=== PATIENT | female | born 1940 | race Caucasian/White ===

== ENCOUNTER 2017-02-02 06:50 | Inpatient (IN) | payer MEDICARE, BC ==
[2017-02-02] MEDS ORDERED: Ondansetron 4 MG/2 ML SDV ONE (07:36)
[2017-02-02] MEDS ORDERED: Rocuronium 50 MG/5 ML Vial ONE (07:36)
[2017-02-02] MEDS ORDERED: Propofol 200 MG/20 ML SDV ONE (07:36)
[2017-02-02] MEDS ORDERED: Dexamethasone 4 MG/ML SDV ONE (07:36)
[2017-02-02] MEDS ORDERED: fentaNYL 250 MCG/5 ML SDV ONE (07:36)
[2017-02-02] MEDS ORDERED: Neostigmine Methylsulfate 1 MG/ML 5 ML Syringe ONE (07:36)
[2017-02-02] MEDS: Lactated Ringers 1,000 ML IV SCH (07:58)
[2017-02-02] MEDS ORDERED: ceFAZolin 2 GM in Sodium Chloride 0.9% 50 ML IV ONE (09:00)
[2017-02-02] MEDS ORDERED: Povidone-Iodine 10% Soln 118.25 ML Bottle ONE ×2 (09:33→13:28)
[2017-02-02] MEDS ORDERED: Thrombin (Bovine) 5,000 Unit Kit ONE (09:33)
[2017-02-02] MEDS ORDERED: Albuterol/Ipratropium 3.0-0.5 MG/3 ML Neb Soln NEB ONE (10:00)
[2017-02-02] MEDS ORDERED: Lactated Ringers 1,000 ML ONE (11:23)
[2017-02-02] MEDS ORDERED: fentaNYL 100 MCG/2 ML SDV ONE ×2 (11:51→13:07)
[2017-02-02] MEDS ORDERED: ePHEDrine 50 MG/ML SDV ONE (12:05)
[2017-02-02] MEDS ORDERED: Zolpidem 5 MG Tab PO PRN (14:41)
[2017-02-02] MEDS ORDERED: Sennosides 8.6 MG Tab PO PRN (14:41)
[2017-02-02] MEDS ORDERED: Sodium Chloride 0.9% 10 ML Syringe FLUSH PRN (14:41)
[2017-02-02] MEDS ORDERED: Naloxone 0.4 MG/ML SDV IVPUSH PRN (14:41)
[2017-02-02] MEDS ORDERED: Aluminum Hydroxide/Magnesium Hydroxide/Simethicone Susp 30 ML Cup PO PRN (14:41)
[2017-02-02] MEDS ORDERED: Magnesium Hydroxide 400 MG/5 ML Susp 30 ML Cup PO PRN (14:41)
[2017-02-02] MEDS ORDERED: ceFAZolin 1 GM in Sodium Chloride 0.9% 50 ML IV SCH (14:45)
[2017-02-02] MEDS: HYDROmorphone 1 MG/ML Syringe IVPUSH PRN ×2 (15:25→18:22)
[2017-02-02] MEDS ORDERED: Albuterol 8 GM Inhaler INH PRN (15:52)
[2017-02-02] MEDS ORDERED: Ketotifen 0.025% Ophth Soln 5 ML Bottle EYEBOTH PRN (15:52)
[2017-02-02] MEDS: Ondansetron 4 MG/2 ML SDV IVPUSH PRN ×2 (17:13→21:05)
--- NOTE | 2017-02-02 17:18 | PCM.CONS ---
H&P History of Present Illness - General Date of Service: 02/02/17 Admit Problem/Dx: Source of Information: Patient, Provider, RN notes reviewed History Limitations: Reports: No limitations - History of Present Illness Initial Comments - Free Text/Narative: This patient is a 76-year-old woman who I been asked to see by Dr. Gonzalez for hospice consult and assistance in medical management during her hospital stay. She was admitted today for management of L4-5 spinal stenosis and underwent spinal fusion procedure. She is been stable during the initial postoperative period, pain control has been adequate and she has experienced some mild nausea. She denies any chest pain or pressure or significant shortness of breath. - Related Data Allergies/Adverse Reactions: Allergies Allergy/AdvReac Type Severity Reaction Status Date / Time morphine Allergy Itching Verified 02/02/17 07:15 paroxetine AdvReac Dizziness Verified 02/02/17 07:15 Home Medications: Home Meds Acetaminophen [Tylenol] 650 mg PO Q6H PRN 05/27/16 [History] Albuterol Sulfate [Proair Hfa] 2 puff IH Q4H PRN 05/27/16 [History] Betamethasone Valerate 1 applic TP BID 05/27/16 [History] Calcium Carbonate/Vitamin D3 [Calcium 600 + Vit D 200] 1 each PO BID 05/27/16 [ History] Cetirizine [ZyrTEC] 10 mg PO DAILY 05/27/16 [History] Citalopram Hydrobromide [Celexa] 10 mg PO DAILY 05/27/16 [History] Clopidogrel [Plavix] 75 mg PO DAILY 05/27/16 [History] HCTZ/Triamterene [Maxzide 25-37.5 MG] 1 each PO DAILY 05/27/16 [History] Ketotifen [Ketotifen 0.025% Ophth Soln] 1 drop EYEBOTH DAILY PRN 05/27/16 [ History] Metoprolol Tartrate [Lopressor] 25 mg PO Q12HR 05/27/16 [History] Multivitamin [Multi-Vitamin Daily] 1 tab PO DAILY 05/27/16 [History] Nystatin [Nystatin Crm] 1 applic TOP BID 05/27/16 [History] [place]-3/DHA/Epa/Fish Oil [[place]-3 Fish Oil 1,000 MG Sfgl] 1,000 mg PO BID [History] Triamcinolone Acetonide [Kenalog 0.1% Crm] 1 applic TOP BID PRN 05/27/16 [ History] Pravastatin [Pravachol] 10 mg PO DAILY 05/31/16 [History] Past Medical History HEENT History: Reports: Allergic rhinitis, Cataract, Hard of hearing Cardiovascular History: Reports: High cholesterol, Hypertension, Other (see below) Other Cardiovascular History: in grade school had blood clot in thigh Respiratory History: Reports: Bronchitis, recurrent, COPD, Other (see below) Other Respiratory History: emphysema Gastrointestinal History: Reports: Diverticulosis, Gastritis, Hemorrhoids Genitourinary History: Reports: UTI, recurrent [employer] History: Reports: Fibroids, Musculoskeletal History: Reports: Arthritis, Back pain, chronic, Other (see below) Other Musculoskeletal History: bulging disc, wears back brace, right shoulder spurs Neurological History: Reports: CVA Psychiatric History: Reports: Depression Endocrine/Metabolic History: Reports: None Hematologic History: Reports: None Immunologic History: Reports: None Oncologic (Cancer) History: Reports: None Dermatologic History: Reports: Other (see below) Other Dermatologic History: rash - Infectious Disease History Infectious Disease History: Reports: Chicken pox - Past Surgical History Head Surgeries/Procedures: Reports: None HEENT Surgical History: Reports: Tonsillectomy Cardiovascular Surgical History: Reports: None Respiratory Surgical History: Reports: None GI Surgical History: Reports: Colonoscopy, Hernia repair/other Female Surgical History: Reports: Hysterectomy, Salpingo-oophorectomy Neurological Surgical History: Reports: None Musculoskeletal Surgical History: Reports: Shoulder surgery Oncologic Surgical History: Reports: None Dermatological Surgical History: Reports: None Social & Family History - Family History Family Medical History: Noncontributory - Tobacco Use Smoking Status *Q: Never Smoker Second Hand Smoke Exposure: No - Caffeine Use Caffeine Use: Reports: Coffee - Alcohol Use Date of Last Drink: 01/22/17 Time of Last Drink: 18:00 - Recreational Drug Use Recreational Drug Use: No H&P Review of Systems - Review of Systems: Review Of Systems: See Below General: Reports: no symptoms Pulmonary: Reports: No Symptoms Cardiovascular: Reports: no symptoms Gastrointestinal: Reports: No symptoms Genitourinary: Reports: no symptoms Exam - Exam Exam: See Below - Vital Signs Vital Signs: Last Vital Signs Temp 96.6 F 02/02/17 15:00 Pulse 89 02/02/17 16:30 Resp 16 02/02/17 16:30 BP 103/70 02/02/17 16:30 Pulse Ox 93 L 02/02/17 16:30 Weight: 174 lb 0.2 oz - Exam General: sedated, lethargic Neck: supple, trachea midline, +2 carotid pulse wo bruit Lungs: Clear to auscultation, Normal respiratory effort Cardiovascular: regular rate, regular rhythm, normal S1, normal S2. No: systolic murmur, diastolic murmur Abdomen: normal bowel sounds, soft Consult PN Assessment/Plan Procedures: Procedures ARTHROSCOP ROTATOR CUFF REPR (05/31/16) BLOOD TYPING SEROLOGIC ABO (01/24/17) BLOOD TYPING SEROLOGIC RH(D) (01/24/17) CHEST X-RAY 2VW FRONTAL&LATL (01/24/17) COMP SCREEN MAMMOGRAM ADD-ON (08/04/16) COMPLETE CBC AUTOMATED (01/24/17) COMPREHEN METABOLIC PANEL (01/24/17) CULTURE OTHR SPECIMN AEROBIC (01/24/17) EVALUATION OF WHEEZING (09/26/13) HOT OR COLD PACKS THERAPY (08/25/16) MANUAL THERAPY 1/> REGIONS (07/15/16) MRI CHEST SPINE W/O DYE (01/13/17) MRI JOINT UPR EXTREM W/O DYE (04/23/16) MRI LUMBAR SPINE W/O DYE (01/13/17) OFFICE/OUTPATIENT VISIT NEW (01/24/17) POLYSOM ANY AGE 1-3> FRIEDA (12/05/16) PROTHROMBIN TIME (01/24/17) PT EVALUATION (06/15/16) PT RE-EVALUATION (11/13/15) RBC ANTIBODY SCREEN (01/24/17) ROUTINE VENIPUNCTURE (01/24/17) SHOULDER ARTHROSCOPY/SURGERY (05/31/16) THERAPEUTIC EXERCISES (08/25/16) ULTRASOUND THERAPY (04/15/16) X-RAY EXAM L-2 SPINE 4/>VWS (01/24/17) Problem List Initiated/Reviewed/Updated: Yes My Orders last 24 hours: My Active Orders 02/02/17 15:52 Albuterol [Ventolin HFA] 0 gm INH Q4H PRN Ketotifen [Ketotifen 0.025% Ophth Soln] 0 ml EYEBOTH DAILY PRN Triamcinolone Acetonide [Triamcinolone Acetonide 0.1% Crm] 0 gm TOP BID PRN 02/02/17 16:00 Citalopram [Celexa] 10 mg PO DAILY 02/02/17 18:00 Metoprolol Tartrate [Lopressor] 25 mg PO Q12H 02/02/17 21:00 Non-Formulary Medication [NF Drug] 0 each TOP BID Pravastatin [Pravachol] 10 mg PO BEDTIME 02/03/17 09:00 Cetirizine [ZyrTEC] 10 mg PO DAILY HCTZ/Triamterene [Dyazide 25-37.5 MG] 1 each PO DAILY Plan: ASSESSMENT AND RECOMMENDATIONS STATUS POST LUMBAR SPINAL FUSION-for management of L4-5 spinal stenosis -Postoperative care per Dr. Pb Gonzalez HYPERTENSION -Monitor blood pressure closely during hospital stay -Resume usual outpatient antihypertensive therapy HYPERCHOLESTEROLEMIA -Continue current therapy with pravastatin Requesting Provider: ALEISHA Date Consult Requested: 02/02/17 Reason for Consult: Postoperative medical management Patient History Reviewed: Yes
[2017-02-02] MEDS: Citalopram 10 MG Tab PO SCH (17:20)
[2017-02-02] MEDS: ceFAZolin 1 GM in Premix Bag 1 BAG IV SCH (18:22)
[2017-02-02] MEDS: Metoprolol Tartrate 25 MG Tab PO SCH (23:32)
[2017-02-02] MEDS: Pravastatin 20 MG Tab PO SCH (23:33)
[2017-02-02] MEDS: BETAMETHASONE VALERATE TOP SCH (23:33)
[2017-02-03] MEDS: Lactated Ringers 1,000 ML IV SCH (00:39)
[2017-02-03] MEDS: ceFAZolin 1 GM in Premix Bag 1 BAG IV SCH (02:53)
[2017-02-03] MEDS: Metoprolol Tartrate 25 MG Tab PO SCH ×2 (05:12→17:30)
[2017-02-03] MEDS: Acetaminophen/oxyCODONE 325-5 MG Tab PO PRN ×6 (05:14→20:47)
[2017-02-03] MEDS: Ondansetron 4 MG/2 ML SDV IVPUSH PRN (08:06)
--- NOTE | 2017-02-03 09:01 | OR ---
DATE OF PROCEDURE: 02/02/2017 PREOPERATIVE DIAGNOSES: 1. Lumbar stenosis, L4-L5. 2. Spondylolisthesis, L4-L5. 3. Radiculopathy, L4-L5. POSTOPERATIVE DIAGNOSES: 1. Lumbar stenosis, L4-L5. 2. Spondylolisthesis, L4-L5. 3. Radiculopathy, L4-L5. PROCEDURE: Posterior lumbar fusion, L4-L5. ELECTRIC HOIST OPERATOR: Arianna Lundberg NP. ANESTHESIA: General endotracheal intubation. FLUID: Lactated Ringer solution. ESTIMATED BLOOD LOSS: 800 mL. COMPLICATIONS: None. SPECIMEN: None. DISCHARGE DISPOSITION: Stable to PACU. HISTORY AND INDICATIONS FOR THE PROCEDURE: The patient was seen preoperatively in the clinic. She had failed nonoperative treatment, including nonsteroidal anti-inflammatories, medications, physical therapy, and epidural steroid injections. Preoperative imaging confirmed the above-mentioned diagnosis. Risks and benefits of the procedure were explained to the patient. Informed consent was obtained. PROCEDURE IN DETAIL: The patient was seen preoperatively by myself and the Anesthesia staff in the preop holding area, where the operative site was marked. She was brought to the operative suite by the anesthesia staff, where general anesthesia was administered. Neuromonitoring leads were placed preoperatively and remained normal throughout the entire case. The fluoroscopy unit was draped in sterile manner. Please note, a sterile Person catheter had been placed. She was placed into a Waylon table in a prone position. All extremities were found to be well padded. A time-out was called identifying the correct patient, the correct procedure, the correct site, and antibiotics had begun with an appropriate period of time. Fluoroscopy was used to visualize the L4 and L5 vertebral bodies. Midline incision was made from the spinous processes of L3 through L5 and carried down to the deep fascia. There was a great deal of oozing throughout this case. The patient was preoperatively on Plavix. She had been stopped for least 5 days. Cerebellar retractors were used at that point in time. I then used a Cho elevator and Bovie electrocautery for deep dissection down over the spinous process, as well as the lamina facets and transverse processes of the L4 and L5 vertebrae. Bleeding was initially controlled by the Aquamantys unit and bipolar electrocautery. At times I did use Ray-Edilia's in the lateral gutters to control bleeding. The screws were first placed on the left and then the right at L4 and L5. The method for this was to palpate the transverse processes, to drill out the facets, and then enter the base of the facet at the level of the pars, and then using a Pediguard, insert the Pediguard down to 50 mm, and then placed a pedicle probe to ensure that all 4 sides had bone and that there was no medial or lateral breach. I then would tap and then placed the pedicle probe again, confirming there was no breach, followed by the screws. These were all globus Creo 50 mm screws, which were 5.5 mm. I confirmed good placement on the left side with fluoroscopy, then the right side. After this had been completed, we spent a very large amount of time doing the additional laminectomy at L4-5, which was needed for decompression for lumbar stenosis. I used a rongeur to remove any soft tissue and then removed bone for graft, removing the inferior portion of the L3 spinous process, the entire L4 spinous process, and part of the cranial portion of the L5 spinous process. I then used a technique by making a trough in the lateral lamina. I was unable to crack this; however, I was able to take a rongeur and then break it off in a few sections and taking off the lamina without interrupting the dura. I then used cottonoids to protect the dura. I removed the ligamentum flavum and then concentrated on a facetectomy on the left. This was done using the drill, as well as Kerrisons and rongeurs. After the inferior facet of L4 and superior facet of L5 on the left were removed, it was abundantly clear that the entire nerve root at L4 was covering the disk space and this could not be retracted cranially to allow diskectomy and interbody placement. At that time, I decided we would not do an interbody device and that we would continue without it. We then irrigated with 3 L of Betadine infused irrigation. I then put the caps on the screws, as well as the rods, and then the laminectomy autograft was used and mixed with Sign[employer] Bioactive crunch and then placed into the right lateral gutter, after decorticating the transverse processes, as well as the facets on that side. This provided an excellent bed for the bone graft. We then placed our rods and tightened them to the appropriate torque. We then took final films and then closed the deep fascia with #2 Vicryl in an interlocking fashion, followed by #2 continuous Vicryl, followed by another liter of Betadine infused irrigation. Please note that we did place a deep drain prior to the fascial closure, which was subfascial. We then created another drain for the subcutaneous tissue and then closed the deep subcu with 0 Vicryl pops and then subcutaneous suture with 2-0 Vicryl pops, then 2-0 Monocryl, Dermabond, and a sterile dressing. The patient was then flipped into a supine position on the hospital bed and taken to the PACU in stable condition. Pb Gonzalez DO /[id number]
[2017-02-03] MEDS: BETAMETHASONE VALERATE TOP SCH ×2 (09:14→20:44)
[2017-02-03] MEDS: Citalopram 10 MG Tab PO SCH (09:18)
[2017-02-03] MEDS: Hydrochlorothiazide/Triamterene 25-37.5 MG Cap PO SCH (09:18)
[2017-02-03] MEDS: Cetirizine 10 MG Tab PO SCH (09:18)
[2017-02-03] MEDS ORDERED: Diazepam 5 MG Tab PO PRN (09:25)
[2017-02-03] MEDS ORDERED: Ondansetron 4 MG Tab.DIS PO PRN (09:26)
[2017-02-03] MEDS: Dexamethasone 4 MG Tab PO SCH ×2 (12:12→20:43)
--- NOTE | 2017-02-03 12:27 | PCM.CONSN ---
- General Info Date of Service: 02/03/17 Functional Status: Reports: pain controlled, tolerating diet, ambulating, urinating - Review of Systems General: Reports: No Symptoms Pulmonary: Reports: no symptoms Cardiovascular: Reports: No Symptoms Gastrointestinal: Reports: Nausea. Denies: Abdominal pain, Constipation, Vomiting Musculoskeletal: Reports: back pain Systems Review Comment:: This patient has remained stable since admission, she has experienced some ongoing difficulty with nausea. Vital signs have been stable and she has remained afebrile. - Patient Data Vitals - most recent: Last Vital Signs Temp 96.6 F 02/03/17 11:53 Pulse 67 02/03/17 11:53 Resp 16 02/03/17 11:53 BP 105/67 02/03/17 11:53 Pulse Ox 97 02/03/17 11:53 Weight - most recent: 174 lb 0.2 oz I&O - last 24 hours: Intake & Output 02/02/17 02/03/17 02/03/17 22:59 06:59 14:59 Intake Total 145 315 7852 Output Total 110 300 Balance 225 -150 1361 Lab Results last 24 hrs: Laboratory Results - last 24 hr 02/03/17 02/03/17 Range/Units 05:00 05:00 WBC 13.1 H (4.5-11.0) K/uL RBC 3.83 (3.30-5.50) M/uL Hgb 11.9 L D (12.0-15.0) g/dL Hct 35.1 L (36.0-48.0) % MCV 92 (80-98) fL MCH 31 (27-31) pg MCHC 34 (32-36) % Plt Count 216 (150-400) K/uL Neut % (Auto) 84 H (36-66) % Lymph % (Auto) 6 L (24-44) % [place] % (Auto) 10 H (2-6) % Eos % (Auto) 0 L (2-4) % Baso % (Auto) 0 (0-1) % Sodium 140 (140-148) mmol/L Potassium 4.2 (3.6-5.2) mmol/L Chloride 102 (100-108) mmol/L Carbon Dioxide 29 (21-32) mmol/L Anion Gap 9.1 (5.0-14.0) mmol/L BUN 18 (7-18) mg/dL Creatinine 1.2 H (0.6-1.0) mg/dL Est Cr Clr Drug Dosing 32.99 mL/min Estimated GFR (MDRD) 44 L (>60) Glucose 170 H (74-106) mg/dL Calcium 8.2 L (8.5-10.1) mg/dL Med Orders - Current: Current Medications Al Hydroxide/Mg Hydroxide (Mag-Al Plus) 30 ml PO Q4H PRN PRN Reason: Indigestion Albuterol (Ventolin Hfa) 0 gm INH Q4H PRN PRN Reason: Shortness of Breath Cetirizine HCl (Zyrtec) 10 mg PO DAILY [facility] Last Admin: 02/03/17 09:18 Dose: 10 mg Citalopram Hydrobromide (Celexa) 10 mg PO DAILY [facility] Last Admin: 02/03/17 09:18 Dose: 10 mg Dexamethasone (Dexamethasone) 4 mg PO BID [facility] Last Admin: 02/03/17 12:12 Dose: 4 mg Diazepam (Valium.) 5 mg PO QID PRN PRN Reason: Spasms Last Admin: 02/03/17 09:41 Dose: 5 mg Lactated Ringer's (Ringers, Lactated) 1,000 mls @ 100 mls/hr IV ASDIRECTED [facility] Last Admin: 02/03/17 00:39 Dose: 100 mls/hr Ketotifen Fumarate (Ketotifen 0.025% Ophth Soln) 0 ml EYEBOTH DAILY PRN PRN Reason: Allergies Magnesium Hydroxide (Milk Of Magnesia) 30 ml PO BID PRN PRN Reason: Constipation Metoprolol Tartrate (Lopressor) 25 mg PO Q12H [facility] Last Admin: 02/03/17 05:12 Dose: 25 mg Betamethasone (Valerate Lotion) 0 each TOP BID [facility] Last Admin: 02/03/17 09:14 Dose: Not Given Ondansetron HCl (Zofran Odt) 4 mg PO Q6H PRN PRN Reason: Nausea/Vomiting Oxycodone/Acetaminophen (Percocet 325-5 Mg) 2 tab PO Q4H PRN PRN Reason: Pain Last Admin: 02/03/17 09:18 Dose: 2 tab Pravastatin Sodium (Pravachol) 10 mg PO BEDTIME [facility] Last Admin: 02/02/17 23:33 Dose: Not Given Senna (Senna) 8.6 mg PO BID PRN PRN Reason: Constipation Triamcinolone Acetonide (Triamcinolone Acetonide 0.1% Crm) 0 gm TOP BID PRN PRN Reason: Itching Triamterene/HCTZ (Dyazide 25-37.5 Mg) 1 each PO DAILY [facility] Last Admin: 02/03/17 09:18 Dose: 1 each Zolpidem Tartrate (Ambien) 5 mg PO BEDTIME PRN PRN Reason: Sleep Discontinued Medications Albuterol/Ipratropium (Duoneb 3.0-0.5 Mg/3 Ml) 3 ml NEB ONETIME ONE Stop: 02/02/17 10:01 Last Admin: 02/02/17 09:47 Dose: 3 ml Dexamethasone (Dexamethasone) Confirm Administered Dose 4 mg .ROUTE .STK-MED ONE Stop: 02/02/17 07:37 Diazepam (Valium) 5 mg IVPUSH Q6H PRN PRN Reason: Spasms Ephedrine Sulfate (Ephedrine Sulfate) Confirm Administered Dose 50 mg .ROUTE .STK-MED ONE Stop: 02/02/17 12:06 Fentanyl (Sublimaze) Confirm Administered Dose 250 mcg .ROUTE .STK-MED ONE Stop: 02/02/17 07:37 Fentanyl (Sublimaze) Confirm Administered Dose 100 mcg .ROUTE .STK-MED ONE Stop: 02/02/17 11:52 Fentanyl (Sublimaze) Confirm Administered Dose 100 mcg .ROUTE .STK-MED ONE Stop: 02/02/17 13:08 Glycopyrrolate () Confirm Administered Dose 1 mg .ROUTE .STK-MED ONE Stop: 02/02/17 07:37 Hydromorphone HCl (Dilaudid) 1 mg IVPUSH Q2H PRN PRN Reason: Pain Last Admin: 02/02/17 18:22 Dose: 1 mg Cefazolin Sodium 2 gm/ Sodium (Chloride) 50 mls @ 100 mls/hr IV ONETIME ONE Stop: 02/02/17 09:29 Last Admin: 02/02/17 10:15 Dose: 100 mls/hr Lactated Ringer's (Ringers, Lactated) Confirm Administered Dose 1,000 mls @ as directed .ROUTE .STK-MED ONE Stop: 02/02/17 11:24 Cefazolin Sodium 1 gm/ Sodium (Chloride) 50 mls @ 100 mls/hr IV Q8H [facility] Stop: 02/03/17 07:14 Last Admin: 02/02/17 17:20 Dose: Not Given Cefazolin Sodium/Dextrose 1 gm (/ Premix) 50 mls @ 100 mls/hr IV Q8H [facility] Stop: 02/03/17 10:29 Last Admin: 02/03/17 02:53 Dose: 100 mls/hr Naloxone HCl (Narcan) 0.2 mg IVPUSH ONETIME PRN PRN Reason: Oversedation Stop: 02/02/17 14:42 Neostigmine Methylsulfate (Neostigmine) Confirm Administered Dose 5 mg .ROUTE .STK-MED ONE Stop: 02/02/17 07:37 Ondansetron HCl (Zofran) Confirm Administered Dose 4 mg .ROUTE .STK-MED ONE Stop: 02/02/17 07:37 Ondansetron HCl (Zofran) 8 mg IVPUSH Q4H PRN PRN Reason: Nausea/Vomiting Last Admin: 02/03/17 08:06 Dose: 8 mg Povidone Iodine (Betadine 10% Soln) Confirm Administered Dose 1 ml .ROUTE .STK- MED ONE Stop: 02/02/17 09:34 Last Admin: 02/02/17 11:13 Dose: 1 ml Povidone Iodine (Betadine 10% Soln) Confirm Administered Dose 1 ml .ROUTE .STK- MED ONE Stop: 02/02/17 13:29 Last Admin: 02/02/17 14:00 Dose: 1 ml Propofol (Diprivan 20 Ml) Confirm Administered Dose 200 mg .ROUTE .STK-MED ONE Stop: 02/02/17 07:37 Rocuronium [place] (Zemuron) Confirm Administered Dose 50 mg .ROUTE .STK-MED ONE Stop: 02/02/17 07:37 Sodium Chloride (Saline Flush) 10 ml FLUSH ASDIRECTED PRN PRN Reason: Keep Vein Open Thrombin (Thrombin-Jmi) Confirm Administered Dose 10,000 unit .ROUTE .STK-MED ONE Stop: 02/02/17 09:34 Last Admin: 02/02/17 11:14 Dose: 10,000 unit - Exam Quality Assessment: DVT prophylaxis General: alert, oriented, cooperative, mild distress Lungs: Clear to auscultation, Normal respiratory effort Cardiovascular: Regular Rate, Regular Rhythm, No Murmurs Abdomen: bowel sounds present, soft, no tenderness, no distension Extremities: no edema Skin: warm, dry, intact Consult PN Assessment/Plan Procedures: Procedures ARTHROSCOP ROTATOR CUFF REPR (05/31/16) BLOOD TYPING SEROLOGIC ABO (01/24/17) BLOOD TYPING SEROLOGIC RH(D) (01/24/17) CHEST X-RAY 2VW FRONTAL&LATL (01/24/17) COMP SCREEN MAMMOGRAM ADD-ON (08/04/16) COMPLETE CBC AUTOMATED (01/24/17) COMPREHEN METABOLIC PANEL (01/24/17) CULTURE OTHR SPECIMN AEROBIC (01/24/17) EVALUATION OF WHEEZING (09/26/13) HOT OR COLD PACKS THERAPY (08/25/16) MANUAL THERAPY 1/> REGIONS (07/15/16) MRI CHEST SPINE W/O DYE (01/13/17) MRI JOINT UPR EXTREM W/O DYE (04/23/16) MRI LUMBAR SPINE W/O DYE (01/13/17) OFFICE/OUTPATIENT VISIT NEW (01/24/17) POLYSOM ANY AGE 1-3> FRIEDA (12/05/16) PROTHROMBIN TIME (01/24/17) PT EVALUATION (06/15/16) PT RE-EVALUATION (11/13/15) RBC ANTIBODY SCREEN (01/24/17) ROUTINE VENIPUNCTURE (01/24/17) SHOULDER ARTHROSCOPY/SURGERY (05/31/16) THERAPEUTIC EXERCISES (08/25/16) ULTRASOUND THERAPY (04/15/16) X-RAY EXAM L-2 SPINE 4/>VWS (01/24/17) Problem List Initiated/Reviewed/Updated: Yes My Orders last 24 hours: My Active Orders 02/02/17 15:52 Albuterol [Ventolin HFA] 0 gm INH Q4H PRN Ketotifen [Ketotifen 0.025% Ophth Soln] 0 ml EYEBOTH DAILY PRN Triamcinolone Acetonide [Triamcinolone Acetonide 0.1% Crm] 0 gm TOP BID PRN 02/02/17 16:00 Citalopram [Celexa] 10 mg PO DAILY 02/02/17 18:00 Metoprolol Tartrate [Lopressor] 25 mg PO Q12H 02/02/17 21:00 Non-Formulary Medication [NF Drug] 0 each TOP BID Pravastatin [Pravachol] 10 mg PO BEDTIME 02/03/17 09:00 Cetirizine [ZyrTEC] 10 mg PO DAILY HCTZ/Triamterene [Dyazide 25-37.5 MG] 1 each PO DAILY Plan: ASSESSMENT AND RECOMMENDATIONS STATUS POST LUMBAR SPINAL FUSION-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 Except for nausea stable during the postoperative period -Postoperative care per Dr. Pb Gonzalez HYPERTENSION-blood pressures have remained stable thus far -Monitor blood pressure closely during hospital stay -Resume usual outpatient antihypertensive therapy HYPERCHOLESTEROLEMIA -Continue current therapy with pravastatin
[2017-02-03] MEDS: Pravastatin 20 MG Tab PO SCH (20:45)
[2017-02-04] MEDS: Metoprolol Tartrate 25 MG Tab PO SCH ×2 (05:38→18:14)
[2017-02-04] MEDS: Acetaminophen/oxyCODONE 325-5 MG Tab PO PRN ×3 (07:09→18:14)
--- NOTE | 2017-02-04 08:28 | PCM.PN ---
- General Info Date of Service: 02/03/17 Functional Status: Reports: pain controlled, tolerating diet, ambulating - Patient Data Vitals - most recent: Last Vital Signs Temp 35.6 C 02/04/17 04:00 Pulse 65 02/04/17 05:38 Resp 16 02/04/17 04:00 BP 143/85 H 02/04/17 05:38 Pulse Ox 94 L 02/04/17 07:22 Weight - most recent: 174 lb 0.2 oz I&O - last 24 hours: Intake & Output 02/03/17 02/04/17 02/04/17 22:59 06:59 14:59 Intake Total 380 480 Output Total 425 620 35 Balance -45 -140 -35 Lab Results last 24 hrs: Laboratory Results - last 24 hr 02/04/17 02/04/17 Range/Units 05:37 05:37 WBC 12.6 H (4.5-11.0) K/uL RBC 3.34 (3.30-5.50) M/uL Hgb 10.3 L (12.0-15.0) g/dL Hct 31.4 L (36.0-48.0) % MCV 94 (80-98) fL MCH 31 (27-31) pg MCHC 33 (32-36) % Plt Count 187 (150-400) K/uL Neut % (Auto) 89 H (36-66) % Lymph % (Auto) 7 L (24-44) % [place] % (Auto) 5 (2-6) % Eos % (Auto) 0 L (2-4) % Baso % (Auto) 0 (0-1) % Sodium 134 L (140-148) mmol/L Potassium 4.8 (3.6-5.2) mmol/L Chloride 99 L (100-108) mmol/L Carbon Dioxide 32 (21-32) mmol/L Anion Gap 7.8 (5.0-14.0) mmol/L BUN 23 H (7-18) mg/dL Creatinine 1.1 H (0.6-1.0) mg/dL Est Cr Clr Drug Dosing 35.99 mL/min Estimated GFR (MDRD) 48 L (>60) Glucose 157 H (74-106) mg/dL Calcium 8.2 L (8.5-10.1) mg/dL Med Orders - Current: Current Medications Al Hydroxide/Mg Hydroxide (Mag-Al Plus) 30 ml PO Q4H PRN PRN Reason: Indigestion Albuterol (Ventolin Hfa) 0 gm INH Q4H PRN PRN Reason: Shortness of Breath Cetirizine HCl (Zyrtec) 10 mg PO DAILY [facility] Last Admin: 02/03/17 09:18 Dose: 10 mg Citalopram Hydrobromide (Celexa) 10 mg PO DAILY [facility] Last Admin: 02/03/17 09:18 Dose: 10 mg Dexamethasone (Dexamethasone) 4 mg PO BID [facility] Last Admin: 02/03/17 20:43 Dose: 4 mg Diazepam (Valium.) 5 mg PO QID PRN PRN Reason: Spasms Last Admin: 02/03/17 09:41 Dose: 5 mg Lactated Ringer's (Ringers, Lactated) 1,000 mls @ 100 mls/hr IV ASDIRECTED [facility] Last Admin: 02/03/17 00:39 Dose: 100 mls/hr Ketotifen Fumarate (Ketotifen 0.025% Ophth Soln) 0 ml EYEBOTH DAILY PRN PRN Reason: Allergies Magnesium Hydroxide (Milk Of Magnesia) 30 ml PO BID PRN PRN Reason: Constipation Metoprolol Tartrate (Lopressor) 25 mg PO Q12H [facility] Last Admin: 02/04/17 05:38 Dose: 25 mg Betamethasone (Valerate Lotion) 0 each TOP BID [facility] Last Admin: 02/03/17 20:44 Dose: Not Given Ondansetron HCl (Zofran Odt) 4 mg PO Q6H PRN PRN Reason: Nausea/Vomiting Last Admin: 02/03/17 13:32 Dose: 4 mg Oxycodone/Acetaminophen (Percocet 325-5 Mg) 2 tab PO Q4H PRN PRN Reason: Pain Last Admin: 02/04/17 07:09 Dose: 2 tab Pravastatin Sodium (Pravachol) 10 mg PO BEDTIME [facility] Last Admin: 02/03/17 20:45 Dose: 10 mg Senna (Senna) 8.6 mg PO BID PRN PRN Reason: Constipation Triamcinolone Acetonide (Triamcinolone Acetonide 0.1% Crm) 0 gm TOP BID PRN PRN Reason: Itching Triamterene/HCTZ (Dyazide 25-37.5 Mg) 1 each PO DAILY [facility] Last Admin: 02/03/17 09:18 Dose: 1 each Zolpidem Tartrate (Ambien) 5 mg PO BEDTIME PRN PRN Reason: Sleep Discontinued Medications Albuterol/Ipratropium (Duoneb 3.0-0.5 Mg/3 Ml) 3 ml NEB ONETIME ONE Stop: 02/02/17 10:01 Last Admin: 02/02/17 09:47 Dose: 3 ml Dexamethasone (Dexamethasone) Confirm Administered Dose 4 mg .ROUTE .STK-MED ONE Stop: 02/02/17 07:37 Diazepam (Valium) 5 mg IVPUSH Q6H PRN PRN Reason: Spasms Ephedrine Sulfate (Ephedrine Sulfate) Confirm Administered Dose 50 mg .ROUTE .STK-MED ONE Stop: 02/02/17 12:06 Fentanyl (Sublimaze) Confirm Administered Dose 250 mcg .ROUTE .STK-MED ONE Stop: 02/02/17 07:37 Fentanyl (Sublimaze) Confirm Administered Dose 100 mcg .ROUTE .STK-MED ONE Stop: 02/02/17 11:52 Fentanyl (Sublimaze) Confirm Administered Dose 100 mcg .ROUTE .STK-MED ONE Stop: 02/02/17 13:08 Glycopyrrolate () Confirm Administered Dose 1 mg .ROUTE .STK-MED ONE Stop: 02/02/17 07:37 Hydromorphone HCl (Dilaudid) 1 mg IVPUSH Q2H PRN PRN Reason: Pain Last Admin: 02/02/17 18:22 Dose: 1 mg Cefazolin Sodium 2 gm/ Sodium (Chloride) 50 mls @ 100 mls/hr IV ONETIME ONE Stop: 02/02/17 09:29 Last Admin: 02/02/17 10:15 Dose: 100 mls/hr Lactated Ringer's (Ringers, Lactated) Confirm Administered Dose 1,000 mls @ as directed .ROUTE .STK-MED ONE Stop: 02/02/17 11:24 Cefazolin Sodium 1 gm/ Sodium (Chloride) 50 mls @ 100 mls/hr IV Q8H [facility] Stop: 02/03/17 07:14 Last Admin: 02/02/17 17:20 Dose: Not Given Cefazolin Sodium/Dextrose 1 gm (/ Premix) 50 mls @ 100 mls/hr IV Q8H [facility] Stop: 02/03/17 10:29 Last Admin: 02/03/17 02:53 Dose: 100 mls/hr Naloxone HCl (Narcan) 0.2 mg IVPUSH ONETIME PRN PRN Reason: Oversedation Stop: 02/02/17 14:42 Neostigmine Methylsulfate (Neostigmine) Confirm Administered Dose 5 mg .ROUTE .STK-MED ONE Stop: 02/02/17 07:37 Ondansetron HCl (Zofran) Confirm Administered Dose 4 mg .ROUTE .STK-MED ONE Stop: 02/02/17 07:37 Ondansetron HCl (Zofran) 8 mg IVPUSH Q4H PRN PRN Reason: Nausea/Vomiting Last Admin: 02/03/17 08:06 Dose: 8 mg Povidone Iodine (Betadine 10% Soln) Confirm Administered Dose 1 ml .ROUTE .STK- MED ONE Stop: 02/02/17 09:34 Last Admin: 02/02/17 11:13 Dose: 1 ml Povidone Iodine (Betadine 10% Soln) Confirm Administered Dose 1 ml .ROUTE .STK- MED ONE Stop: 02/02/17 13:29 Last Admin: 02/02/17 14:00 Dose: 1 ml Propofol (Diprivan 20 Ml) Confirm Administered Dose 200 mg .ROUTE .STK-MED ONE Stop: 02/02/17 07:37 Rocuronium [place] (Zemuron) Confirm Administered Dose 50 mg .ROUTE .STK-MED ONE Stop: 02/02/17 07:37 Sodium Chloride (Saline Flush) 10 ml FLUSH ASDIRECTED PRN PRN Reason: Keep Vein Open Thrombin (Thrombin-Jmi) Confirm Administered Dose 10,000 unit .ROUTE .STK-MED ONE Stop: 02/02/17 09:34 Last Admin: 02/02/17 11:14 Dose: 10,000 unit - Exam General: alert, oriented Back Exam: normal inspection, decreased range of motion (due to tenderness and recent surgery) Extremities: no edema Skin: warm, dry, intact Wound/Incisions: healing well, dressing dry and intact Neurological: no new focal deficit, normal gait, normal speech, reflexes equal bilateral, sensation intact Psy/Mental Status: alert, normal affect, normal mood - Problem List & Annotations (1) S/P lumbar fusion SNOMED Code(s): 326754888, 593487328, 056298082 Code(s): Z98.1 - ARTHRODESIS STATUS Status: Acute Current Visit: Yes Annotation/Comment:: TLIF L4-L5 - Problem List Review Problem List Initiated/Reviewed/Updated: Yes - My Orders Last 24 Hours: My Active Orders 02/03/17 09:25 Diazepam [Valium] 5 mg PO QID PRN 02/03/17 09:26 Ondansetron [Zofran ODT] 4 mg PO Q6H PRN 02/03/17 11:00 Dexamethasone 4 mg PO BID 02/05/17 05:15 BASIC METABOLIC PANEL,BMP [CHEM] DAILY CBC WITH AUTO DIFF [HEME] DAILY 02/06/17 05:15 BASIC METABOLIC PANEL,BMP [CHEM] DAILY CBC WITH AUTO DIFF [HEME] DAILY - Plan Plan:: Patient is doing well. We will continue with PT/OT today for strengthening. We will leave her ortiz in at this point till she is stronger to ambulate. I will start valium and dexamethasone for spasms that she notes on the left side. I will also dc her last dose of ancef and change all her medications to oral due to her IV being pulled out and no successful attempt to replace. We will see how she is doing tomorrow.
--- NOTE | 2017-02-04 08:33 | PCM.PN ---
- General Info Date of Service: 02/04/17 Functional Status: Reports: pain controlled, tolerating diet, ambulating, urinating - Patient Data Vitals - most recent: Last Vital Signs Temp 35.6 C 02/04/17 04:00 Pulse 65 02/04/17 05:38 Resp 16 02/04/17 04:00 BP 143/85 H 02/04/17 05:38 Pulse Ox 94 L 02/04/17 07:22 Weight - most recent: 174 lb 0.2 oz I&O - last 24 hours: Intake & Output 02/03/17 02/04/17 02/04/17 22:59 06:59 14:59 Intake Total 380 480 Output Total 425 620 35 Balance -45 -140 -35 Lab Results last 24 hrs: Laboratory Results - last 24 hr 02/04/17 02/04/17 Range/Units 05:37 05:37 WBC 12.6 H (4.5-11.0) K/uL RBC 3.34 (3.30-5.50) M/uL Hgb 10.3 L (12.0-15.0) g/dL Hct 31.4 L (36.0-48.0) % MCV 94 (80-98) fL MCH 31 (27-31) pg MCHC 33 (32-36) % Plt Count 187 (150-400) K/uL Neut % (Auto) 89 H (36-66) % Lymph % (Auto) 7 L (24-44) % [place] % (Auto) 5 (2-6) % Eos % (Auto) 0 L (2-4) % Baso % (Auto) 0 (0-1) % Sodium 134 L (140-148) mmol/L Potassium 4.8 (3.6-5.2) mmol/L Chloride 99 L (100-108) mmol/L Carbon Dioxide 32 (21-32) mmol/L Anion Gap 7.8 (5.0-14.0) mmol/L BUN 23 H (7-18) mg/dL Creatinine 1.1 H (0.6-1.0) mg/dL Est Cr Clr Drug Dosing 35.99 mL/min Estimated GFR (MDRD) 48 L (>60) Glucose 157 H (74-106) mg/dL Calcium 8.2 L (8.5-10.1) mg/dL Med Orders - Current: Current Medications Al Hydroxide/Mg Hydroxide (Mag-Al Plus) 30 ml PO Q4H PRN PRN Reason: Indigestion Albuterol (Ventolin Hfa) 0 gm INH Q4H PRN PRN Reason: Shortness of Breath Cetirizine HCl (Zyrtec) 10 mg PO DAILY [facility] Last Admin: 02/03/17 09:18 Dose: 10 mg Citalopram Hydrobromide (Celexa) 10 mg PO DAILY [facility] Last Admin: 02/03/17 09:18 Dose: 10 mg Dexamethasone (Dexamethasone) 4 mg PO BID [facility] Last Admin: 02/03/17 20:43 Dose: 4 mg Diazepam (Valium.) 5 mg PO QID PRN PRN Reason: Spasms Last Admin: 02/03/17 09:41 Dose: 5 mg Lactated Ringer's (Ringers, Lactated) 1,000 mls @ 100 mls/hr IV ASDIRECTED [facility] Last Admin: 02/03/17 00:39 Dose: 100 mls/hr Ketotifen Fumarate (Ketotifen 0.025% Ophth Soln) 0 ml EYEBOTH DAILY PRN PRN Reason: Allergies Magnesium Hydroxide (Milk Of Magnesia) 30 ml PO BID PRN PRN Reason: Constipation Metoprolol Tartrate (Lopressor) 25 mg PO Q12H [facility] Last Admin: 02/04/17 05:38 Dose: 25 mg Betamethasone (Valerate Lotion) 0 each TOP BID [facility] Last Admin: 02/03/17 20:44 Dose: Not Given Ondansetron HCl (Zofran Odt) 4 mg PO Q6H PRN PRN Reason: Nausea/Vomiting Last Admin: 02/03/17 13:32 Dose: 4 mg Oxycodone/Acetaminophen (Percocet 325-5 Mg) 2 tab PO Q4H PRN PRN Reason: Pain Last Admin: 02/04/17 07:09 Dose: 2 tab Pravastatin Sodium (Pravachol) 10 mg PO BEDTIME [facility] Last Admin: 02/03/17 20:45 Dose: 10 mg Senna (Senna) 8.6 mg PO BID PRN PRN Reason: Constipation Triamcinolone Acetonide (Triamcinolone Acetonide 0.1% Crm) 0 gm TOP BID PRN PRN Reason: Itching Triamterene/HCTZ (Dyazide 25-37.5 Mg) 1 each PO DAILY [facility] Last Admin: 02/03/17 09:18 Dose: 1 each Zolpidem Tartrate (Ambien) 5 mg PO BEDTIME PRN PRN Reason: Sleep Discontinued Medications Albuterol/Ipratropium (Duoneb 3.0-0.5 Mg/3 Ml) 3 ml NEB ONETIME ONE Stop: 02/02/17 10:01 Last Admin: 02/02/17 09:47 Dose: 3 ml Dexamethasone (Dexamethasone) Confirm Administered Dose 4 mg .ROUTE .STK-MED ONE Stop: 02/02/17 07:37 Diazepam (Valium) 5 mg IVPUSH Q6H PRN PRN Reason: Spasms Ephedrine Sulfate (Ephedrine Sulfate) Confirm Administered Dose 50 mg .ROUTE .STK-MED ONE Stop: 02/02/17 12:06 Fentanyl (Sublimaze) Confirm Administered Dose 250 mcg .ROUTE .STK-MED ONE Stop: 02/02/17 07:37 Fentanyl (Sublimaze) Confirm Administered Dose 100 mcg .ROUTE .STK-MED ONE Stop: 02/02/17 11:52 Fentanyl (Sublimaze) Confirm Administered Dose 100 mcg .ROUTE .STK-MED ONE Stop: 02/02/17 13:08 Glycopyrrolate () Confirm Administered Dose 1 mg .ROUTE .STK-MED ONE Stop: 02/02/17 07:37 Hydromorphone HCl (Dilaudid) 1 mg IVPUSH Q2H PRN PRN Reason: Pain Last Admin: 02/02/17 18:22 Dose: 1 mg Cefazolin Sodium 2 gm/ Sodium (Chloride) 50 mls @ 100 mls/hr IV ONETIME ONE Stop: 02/02/17 09:29 Last Admin: 02/02/17 10:15 Dose: 100 mls/hr Lactated Ringer's (Ringers, Lactated) Confirm Administered Dose 1,000 mls @ as directed .ROUTE .STK-MED ONE Stop: 02/02/17 11:24 Cefazolin Sodium 1 gm/ Sodium (Chloride) 50 mls @ 100 mls/hr IV Q8H [facility] Stop: 02/03/17 07:14 Last Admin: 02/02/17 17:20 Dose: Not Given Cefazolin Sodium/Dextrose 1 gm (/ Premix) 50 mls @ 100 mls/hr IV Q8H [facility] Stop: 02/03/17 10:29 Last Admin: 02/03/17 02:53 Dose: 100 mls/hr Naloxone HCl (Narcan) 0.2 mg IVPUSH ONETIME PRN PRN Reason: Oversedation Stop: 02/02/17 14:42 Neostigmine Methylsulfate (Neostigmine) Confirm Administered Dose 5 mg .ROUTE .STK-MED ONE Stop: 02/02/17 07:37 Ondansetron HCl (Zofran) Confirm Administered Dose 4 mg .ROUTE .STK-MED ONE Stop: 02/02/17 07:37 Ondansetron HCl (Zofran) 8 mg IVPUSH Q4H PRN PRN Reason: Nausea/Vomiting Last Admin: 02/03/17 08:06 Dose: 8 mg Povidone Iodine (Betadine 10% Soln) Confirm Administered Dose 1 ml .ROUTE .STK- MED ONE Stop: 02/02/17 09:34 Last Admin: 02/02/17 11:13 Dose: 1 ml Povidone Iodine (Betadine 10% Soln) Confirm Administered Dose 1 ml .ROUTE .STK- MED ONE Stop: 02/02/17 13:29 Last Admin: 02/02/17 14:00 Dose: 1 ml Propofol (Diprivan 20 Ml) Confirm Administered Dose 200 mg .ROUTE .STK-MED ONE Stop: 02/02/17 07:37 Rocuronium [place] (Zemuron) Confirm Administered Dose 50 mg .ROUTE .STK-MED ONE Stop: 02/02/17 07:37 Sodium Chloride (Saline Flush) 10 ml FLUSH ASDIRECTED PRN PRN Reason: Keep Vein Open Thrombin (Thrombin-Jmi) Confirm Administered Dose 10,000 unit .ROUTE .STK-MED ONE Stop: 02/02/17 09:34 Last Admin: 02/02/17 11:14 Dose: 10,000 unit - Exam General: alert, oriented Back Exam: normal inspection, full range of motion Skin: warm, dry, intact Wound/Incisions: healing well, dressing dry and intact, no drainage Neurological: no new focal deficit, normal gait, normal speech, normal tone, strength equal bilateral, reflexes equal bilateral, sensation intact Psy/Mental Status: alert, normal affect, normal mood - Problem List & Annotations (1) S/P lumbar fusion SNOMED Code(s): 353522071, 536792485, 250952992 Code(s): Z98.1 - ARTHRODESIS STATUS Status: Acute Current Visit: Yes Annotation/Comment:: TLIF L4-L5 - Problem List Review Problem List Initiated/Reviewed/Updated: Yes - My Orders Last 24 Hours: My Active Orders 02/03/17 09:25 Diazepam [Valium] 5 mg PO QID PRN 02/03/17 09:26 Ondansetron [Zofran ODT] 4 mg PO Q6H PRN 02/03/17 11:00 Dexamethasone 4 mg PO BID 02/05/17 05:15 BASIC METABOLIC PANEL,BMP [CHEM] DAILY CBC WITH AUTO DIFF [HEME] DAILY 02/06/17 05:15 BASIC METABOLIC PANEL,BMP [CHEM] DAILY CBC WITH AUTO DIFF [HEME] DAILY - Plan Plan:: Patient is doing well. We will pull her ortiz and FAIZAN drain out today. We will plan on sending her to a short term nursing facility. She will continue with PT/ OT and pain management. If we are able to find a facilty that accepts we will discharge today.
[2017-02-04] MEDS: Citalopram 10 MG Tab PO SCH (08:36)
[2017-02-04] MEDS: Dexamethasone 4 MG Tab PO SCH ×2 (08:36→21:17)
[2017-02-04] MEDS: Cetirizine 10 MG Tab PO SCH (08:37)
[2017-02-04] MEDS: Hydrochlorothiazide/Triamterene 25-37.5 MG Cap PO SCH (08:37)
[2017-02-04] MEDS: Triamcinolone Acetonide 0.1% Crm 15 GM Tube TOP PRN (08:37)
[2017-02-04] MEDS: BETAMETHASONE VALERATE TOP SCH ×2 (08:39→21:18)
--- NOTE | 2017-02-04 15:47 | PCM.PN ---
- General Info Date of Service: 02/04/17 Functional Status: Reports: pain controlled, tolerating diet, ambulating, urinating - Review of Systems General: Reports: Weakness. Denies: Fever, Chills Pulmonary: Reports: no symptoms Cardiovascular: Reports: No Symptoms Gastrointestinal: Reports: No symptoms Systems Review Comment:: This patient has had some ongoing difficulty with weakness, as a result current plan is for discharge to retirement for restorative physical therapy and occupational therapy. She is otherwise been stable with no significant temperature elevations or hemodynamic instability. - Patient Data Vitals - most recent: Last Vital Signs Temp 98.8 F 02/04/17 12:00 Pulse 69 02/04/17 12:00 Resp 18 02/04/17 12:00 BP 148/73 H 02/04/17 12:00 Pulse Ox 90 L 02/04/17 12:00 Weight - most recent: 174 lb 0.2 oz I&O - last 24 hours: Intake & Output 02/04/17 02/04/17 02/04/17 06:59 14:59 22:59 Intake Total 480 540 Output Total 620 605 600 Balance -140 -65 -600 Lab Results last 24 hrs: Laboratory Results - last 24 hr 02/04/17 02/04/17 Range/Units 05:37 05:37 WBC 12.6 H (4.5-11.0) K/uL RBC 3.34 (3.30-5.50) M/uL Hgb 10.3 L (12.0-15.0) g/dL Hct 31.4 L (36.0-48.0) % MCV 94 (80-98) fL MCH 31 (27-31) pg MCHC 33 (32-36) % Plt Count 187 (150-400) K/uL Neut % (Auto) 89 H (36-66) % Lymph % (Auto) 7 L (24-44) % [place] % (Auto) 5 (2-6) % Eos % (Auto) 0 L (2-4) % Baso % (Auto) 0 (0-1) % Sodium 134 L (140-148) mmol/L Potassium 4.8 (3.6-5.2) mmol/L Chloride 99 L (100-108) mmol/L Carbon Dioxide 32 (21-32) mmol/L Anion Gap 7.8 (5.0-14.0) mmol/L BUN 23 H (7-18) mg/dL Creatinine 1.1 H (0.6-1.0) mg/dL Est Cr Clr Drug Dosing 35.99 mL/min Estimated GFR (MDRD) 48 L (>60) Glucose 157 H (74-106) mg/dL Calcium 8.2 L (8.5-10.1) mg/dL Med Orders - Current: Current Medications Al Hydroxide/Mg Hydroxide (Mag-Al Plus) 30 ml PO Q4H PRN PRN Reason: Indigestion Albuterol (Ventolin Hfa) 0 gm INH Q4H PRN PRN Reason: Shortness of Breath Cetirizine HCl (Zyrtec) 10 mg PO DAILY [facility] Last Admin: 02/04/17 08:37 Dose: 10 mg Citalopram Hydrobromide (Celexa) 10 mg PO DAILY [facility] Last Admin: 02/04/17 08:36 Dose: 10 mg Dexamethasone (Dexamethasone) 4 mg PO BID [facility] Last Admin: 02/04/17 08:36 Dose: 4 mg Diazepam (Valium.) 5 mg PO QID PRN PRN Reason: Spasms Last Admin: 02/03/17 09:41 Dose: 5 mg Ketotifen Fumarate (Ketotifen 0.025% Ophth Soln) 0 ml EYEBOTH DAILY PRN PRN Reason: Allergies Magnesium Hydroxide (Milk Of Magnesia) 30 ml PO BID PRN PRN Reason: Constipation Metoprolol Tartrate (Lopressor) 25 mg PO Q12H [facility] Last Admin: 02/04/17 05:38 Dose: 25 mg Betamethasone (Valerate Lotion) 0 each TOP BID [facility] Last Admin: 02/04/17 08:39 Dose: Not Given Ondansetron HCl (Zofran Odt) 4 mg PO Q6H PRN PRN Reason: Nausea/Vomiting Last Admin: 02/03/17 13:32 Dose: 4 mg Oxycodone/Acetaminophen (Percocet 325-5 Mg) 2 tab PO Q4H PRN PRN Reason: Pain Last Admin: 02/04/17 13:21 Dose: 1 tab Pravastatin Sodium (Pravachol) 10 mg PO BEDTIME [facility] Last Admin: 02/03/17 20:45 Dose: 10 mg Senna (Senna) 8.6 mg PO BID PRN PRN Reason: Constipation Triamcinolone Acetonide (Triamcinolone Acetonide 0.1% Crm) 0 gm TOP BID PRN PRN Reason: Itching Last Admin: 02/04/17 08:37 Dose: 1 applic Triamterene/HCTZ (Dyazide 25-37.5 Mg) 1 each PO DAILY [facility] Last Admin: 02/04/17 08:37 Dose: 1 each Zolpidem Tartrate (Ambien) 5 mg PO BEDTIME PRN PRN Reason: Sleep Discontinued Medications Albuterol/Ipratropium (Duoneb 3.0-0.5 Mg/3 Ml) 3 ml NEB ONETIME ONE Stop: 02/02/17 10:01 Last Admin: 02/02/17 09:47 Dose: 3 ml Dexamethasone (Dexamethasone) Confirm Administered Dose 4 mg .ROUTE .STK-MED ONE Stop: 02/02/17 07:37 Diazepam (Valium) 5 mg IVPUSH Q6H PRN PRN Reason: Spasms Ephedrine Sulfate (Ephedrine Sulfate) Confirm Administered Dose 50 mg .ROUTE .STK-MED ONE Stop: 02/02/17 12:06 Fentanyl (Sublimaze) Confirm Administered Dose 250 mcg .ROUTE .STK-MED ONE Stop: 02/02/17 07:37 Fentanyl (Sublimaze) Confirm Administered Dose 100 mcg .ROUTE .STK-MED ONE Stop: 02/02/17 11:52 Fentanyl (Sublimaze) Confirm Administered Dose 100 mcg .ROUTE .STK-MED ONE Stop: 02/02/17 13:08 Glycopyrrolate () Confirm Administered Dose 1 mg .ROUTE .STK-MED ONE Stop: 02/02/17 07:37 Hydromorphone HCl (Dilaudid) 1 mg IVPUSH Q2H PRN PRN Reason: Pain Last Admin: 02/02/17 18:22 Dose: 1 mg Lactated Ringer's (Ringers, Lactated) 1,000 mls @ 100 mls/hr IV ASDIRECTED [facility] Last Admin: 02/03/17 00:39 Dose: 100 mls/hr Cefazolin Sodium 2 gm/ Sodium (Chloride) 50 mls @ 100 mls/hr IV ONETIME ONE Stop: 02/02/17 09:29 Last Admin: 02/02/17 10:15 Dose: 100 mls/hr Lactated Ringer's (Ringers, Lactated) Confirm Administered Dose 1,000 mls @ as directed .ROUTE .STK-MED ONE Stop: 02/02/17 11:24 Cefazolin Sodium 1 gm/ Sodium (Chloride) 50 mls @ 100 mls/hr IV Q8H [facility] Stop: 02/03/17 07:14 Last Admin: 02/02/17 17:20 Dose: Not Given Cefazolin Sodium/Dextrose 1 gm (/ Premix) 50 mls @ 100 mls/hr IV Q8H [facility] Stop: 02/03/17 10:29 Last Admin: 02/03/17 02:53 Dose: 100 mls/hr Naloxone HCl (Narcan) 0.2 mg IVPUSH ONETIME PRN PRN Reason: Oversedation Stop: 02/02/17 14:42 Neostigmine Methylsulfate (Neostigmine) Confirm Administered Dose 5 mg .ROUTE .STK-MED ONE Stop: 02/02/17 07:37 Ondansetron HCl (Zofran) Confirm Administered Dose 4 mg .ROUTE .STK-MED ONE Stop: 02/02/17 07:37 Ondansetron HCl (Zofran) 8 mg IVPUSH Q4H PRN PRN Reason: Nausea/Vomiting Last Admin: 02/03/17 08:06 Dose: 8 mg Povidone Iodine (Betadine 10% Soln) Confirm Administered Dose 1 ml .ROUTE .STK- MED ONE Stop: 02/02/17 09:34 Last Admin: 02/02/17 11:13 Dose: 1 ml Povidone Iodine (Betadine 10% Soln) Confirm Administered Dose 1 ml .ROUTE .STK- MED ONE Stop: 02/02/17 13:29 Last Admin: 02/02/17 14:00 Dose: 1 ml Propofol (Diprivan 20 Ml) Confirm Administered Dose 200 mg .ROUTE .STK-MED ONE Stop: 02/02/17 07:37 Rocuronium [place] (Zemuron) Confirm Administered Dose 50 mg .ROUTE .STK-MED ONE Stop: 02/02/17 07:37 Sodium Chloride (Saline Flush) 10 ml FLUSH ASDIRECTED PRN PRN Reason: Keep Vein Open Thrombin (Thrombin-Jmi) Confirm Administered Dose 10,000 unit .ROUTE .STK-MED ONE Stop: 02/02/17 09:34 Last Admin: 02/02/17 11:14 Dose: 10,000 unit - Exam Quality Assessment: DVT prophylaxis General: alert, oriented, cooperative, mild distress Lungs: Clear to auscultation, Normal respiratory effort Cardiovascular: Regular Rate, Regular Rhythm, No Murmurs Abdomen: bowel sounds present, soft, no tenderness, no distension Extremities: no edema Skin: warm, dry, intact - Problem List Review Problem List Initiated/Reviewed/Updated: Yes - My Orders Last 24 Hours: My Active Orders 02/04/17 15:45 Convert IV to Saline Lock [OM.PC] Routine - Plan Plan:: ASSESSMENT AND RECOMMENDATIONS STATUS POST LUMBAR SPINAL FUSION-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 Nausea has resolved but she remains fairly weak -Postoperative care per Dr. Pb Gonzalez -Anticipate discharge to retirement tomorrow for restorative physical therapy and occupational therapy HYPERTENSION-blood pressures have remained stable thus far -Monitor blood pressure closely during hospital stay -Resume usual outpatient antihypertensive therapy HYPERCHOLESTEROLEMIA -Continue current therapy with pravastatin
[2017-02-04] MEDS: Pravastatin 20 MG Tab PO SCH (21:18)
[2017-02-05] MEDS: Metoprolol Tartrate 25 MG Tab PO SCH (05:10)
[2017-02-05] MEDS: Acetaminophen/oxyCODONE 325-5 MG Tab PO PRN (05:18)
[2017-02-05] MEDS: Dexamethasone 4 MG Tab PO SCH (08:19)
[2017-02-05] MEDS: Hydrochlorothiazide/Triamterene 25-37.5 MG Cap PO SCH (08:19)
[2017-02-05] MEDS: Triamcinolone Acetonide 0.1% Crm 15 GM Tube TOP PRN (08:20)
[2017-02-05] MEDS: Cetirizine 10 MG Tab PO SCH (08:20)
[2017-02-05] MEDS: Citalopram 10 MG Tab PO SCH (08:21)
[2017-02-05] MEDS: BETAMETHASONE VALERATE TOP SCH (08:21)
--- NOTE | 2017-02-05 09:36 | PCM.DCSUM1 ---
Discharge Summary - Hospital Course Free Text/Narrative:: Isabell is a 76 year old female who is status pod 2 from a TLIF L4-L5. She is doing well. Strenghth is improving. She is ambulating the hallways well. She has minimal pain. She is taking oral antibiotics. - Discharge Data Discharge Date: 02/05/17 Discharge Disposition: DC/Tfer to SNF 03 Condition: Good - Discharge Diagnosis/Problem(s) (1) S/P lumbar fusion SNOMED Code(s): 248574216, [id number], [id number] ICD Code: Z98.1 - ARTHRODESIS STATUS Status: Acute Current Visit: Yes Problem Details: TLIF L4-L5 - Patient Summary/Data Consults: Consultations 02/02/17 14:41 Consult to Physician [CONS] Routine Consulting Provider: Trenton Barr Call Completed to Consulting Physician: Yes OT Evaluation and Treatment [CONS] Routine Please Evaluate and Treat. OT Reason for Consult: Strengthening This query below is only for informational purposes and is not editable. PT Evaluation and Treatment [CONS] Routine Please Evaluate and Treat. PT Reason for Consult: Strengthening This query below is only for informational purposes and is not editable. - Patient Instructions Diet: Heart Healthy Diet, Usual Diet as Tolerated Activity: As Tolerated, No Lifting Over 10 Pounds Driving: May Drive Today Showering/Bathing: May Shower Wound/Incision Care: Keep Operative Site/Wound Site Clean and Dry, Change Dressing Daily Notify Provider of: Fever, Increased Pain, Swelling and Redness - Discharge Plan Prescriptions/Med Rec: oxyCODONE HCl/Acetaminophen [Percocet 5-325 mg Tablet] 1 each PO Q4HR PRN #90 tablet PRN Reason: Pain Acetaminophen/oxyCODONE [Percocet 325-5 MG] 2 tab PO Q4H PRN #90 tablet PRN Reason: Pain Diazepam [Valium] 5 mg PO QID PRN #20 tablet PRN Reason: Spasms Ferrous Gluconate 324 mg PO DAILY #30 tablet Home Medications: Home Meds Acetaminophen [Tylenol] 650 mg PO Q6H PRN 05/27/16 [History] Betamethasone Valerate 1 applic TP BID 05/27/16 [History] Calcium Carbonate/Vitamin D3 [Calcium 600 + Vit D 200] 1 each PO BID 05/27/16 [ History] Cetirizine [ZyrTEC] 10 mg PO DAILY 05/27/16 [History] Citalopram Hydrobromide [Celexa] 10 mg PO DAILY 05/27/16 [History] Clopidogrel [Plavix] 75 mg PO DAILY 05/27/16 [History] HCTZ/Triamterene [Maxzide 25-37.5 MG] 1 each PO DAILY 05/27/16 [History] Ketotifen [Ketotifen 0.025% Ophth Soln] 1 drop EYEBOTH DAILY PRN 05/27/16 [ History] Metoprolol Tartrate [Lopressor] 25 mg PO Q12HR 05/27/16 [History] Multivitamin [Multi-Vitamin Daily] 1 tab PO DAILY 05/27/16 [History] Nystatin [Nystatin Crm] 1 applic TOP BID 05/27/16 [History] [place]-3/DHA/Epa/Fish Oil [[place]-3 Fish Oil 1,000 MG Sfgl] 1,000 mg PO BID [History] Triamcinolone Acetonide [Kenalog 0.1% Crm] 1 applic TOP BID PRN 05/27/16 [ History] Pravastatin [Pravachol] 10 mg PO DAILY 05/31/16 [History] Acetaminophen/oxyCODONE [Percocet 325-5 MG] 2 tab PO Q4H PRN #90 tablet [Rx] Diazepam [Valium] 5 mg PO QID PRN #20 tablet 02/04/17 [Rx] oxyCODONE HCl/Acetaminophen [Percocet 5-325 mg Tablet] 1 each PO Q4HR PRN #90 tablet 02/04/17 [Rx] Ferrous Gluconate 324 mg PO DAILY #30 tablet 02/05/17 [Rx] Referrals: Arianna Lundberg, TABLE HAND [Nurse Practitioner] - (Patient is to follow up in 1 month) - Discharge Summary/Plan Comment DC Time >30 min.: No Discharge Summary/Plan Comment: At this time we are going to discharge Isabell to [facility] for strengthening. She will follow up with us in 1 month. Her Hgb is slight low so I am going to start her on once a day iron. I am sending her home on percocet and valium. We will also administer a suppository today for help with moving her bowels. I will dc her FAIZAN also today. - Patient Data Vitals - Most Recent: Last Vital Signs Temp 36.3 C 02/05/17 07:01 Pulse 48 L 02/05/17 07:01 Resp 16 02/05/17 07:01 BP 123/74 02/05/17 07:01 Pulse Ox 95 02/05/17 07:01 Weight - Most Recent: 174 lb 0.2 oz I&O - Last 24 hours: Intake & Output 02/04/17 02/05/17 02/05/17 22:59 06:59 14:59 Intake Total 240 300 Output Total 1140 795 Balance -900 -495 Lab Results - Last 24 hrs: Laboratory Results - last 24 hr 02/05/17 02/05/17 Range/Units 05:28 05:28 WBC 11.3 H (4.5-11.0) K/uL RBC 3.11 L (3.30-5.50) M/uL Hgb 9.5 L (12.0-15.0) g/dL Hct 29.2 L (36.0-48.0) % MCV 94 (80-98) fL MCH 31 (27-31) pg MCHC 33 (32-36) % Plt Count 180 (150-400) K/uL Neut % (Auto) 83 H (36-66) % Lymph % (Auto) 10 L (24-44) % Jenkins % (Auto) 7 H (2-6) % Eos % (Auto) 0 L (2-4) % Baso % (Auto) 0 (0-1) % Sodium 139 L (140-148) mmol/L Potassium 4.6 (3.6-5.2) mmol/L Chloride 102 (100-108) mmol/L Carbon Dioxide 34 H (21-32) mmol/L Anion Gap 7.6 (5.0-14.0) mmol/L BUN 22 H (7-18) mg/dL Creatinine 0.9 (0.6-1.0) mg/dL Est Cr Clr Drug Dosing 43.99 mL/min Estimated GFR (MDRD) > 60 (>60) Glucose 153 H (74-106) mg/dL Calcium 8.1 L (8.5-10.1) mg/dL Med Orders - Current: Current Medications Al Hydroxide/Mg Hydroxide (Mag-Al Plus) 30 ml PO Q4H PRN PRN Reason: Indigestion Albuterol (Ventolin Hfa) 0 gm INH Q4H PRN PRN Reason: Shortness of Breath Bisacodyl (Dulcolax) 10 mg RECTAL ONETIME ONE Stop: 02/05/17 10:01 Cetirizine HCl (Zyrtec) 10 mg PO DAILY [facility] Last Admin: 02/05/17 08:20 Dose: 10 mg Citalopram Hydrobromide (Celexa) 10 mg PO DAILY [facility] Last Admin: 02/05/17 08:21 Dose: 10 mg Dexamethasone (Dexamethasone) 4 mg PO BID [facility] Last Admin: 02/05/17 08:19 Dose: 4 mg Diazepam (Valium.) 5 mg PO QID PRN PRN Reason: Spasms Last Admin: 02/03/17 09:41 Dose: 5 mg Ketotifen Fumarate (Ketotifen 0.025% Ophth Soln) 0 ml EYEBOTH DAILY PRN PRN Reason: Allergies Magnesium Hydroxide (Milk Of Magnesia) 30 ml PO BID PRN PRN Reason: Constipation Last Admin: 02/05/17 07:16 Dose: 30 ml Metoprolol Tartrate (Lopressor) 25 mg PO Q12H [facility] Last Admin: 02/05/17 05:10 Dose: 25 mg Betamethasone (Valerate Lotion) 0 each TOP BID [facility] Last Admin: 02/05/17 08:21 Dose: Not Given Ondansetron HCl (Zofran Odt) 4 mg PO Q6H PRN PRN Reason: Nausea/Vomiting Last Admin: 02/03/17 13:32 Dose: 4 mg Oxycodone/Acetaminophen (Percocet 325-5 Mg) 2 tab PO Q4H PRN PRN Reason: Pain Last Admin: 02/05/17 05:18 Dose: 1 tab Pravastatin Sodium (Pravachol) 10 mg PO BEDTIME [facility] Last Admin: 02/04/17 21:18 Dose: 10 mg Senna (Senna) 8.6 mg PO BID PRN PRN Reason: Constipation Triamcinolone Acetonide (Triamcinolone Acetonide 0.1% Crm) 0 gm TOP BID PRN PRN Reason: Itching Last Admin: 02/05/17 08:20 Dose: 1 applic Triamterene/HCTZ (Dyazide 25-37.5 Mg) 1 each PO DAILY [facility] Last Admin: 02/05/17 08:19 Dose: 1 each Zolpidem Tartrate (Ambien) 5 mg PO BEDTIME PRN PRN Reason: Sleep Discontinued Medications Albuterol/Ipratropium (Duoneb 3.0-0.5 Mg/3 Ml) 3 ml NEB ONETIME ONE Stop: 02/02/17 10:01 Last Admin: 02/02/17 09:47 Dose: 3 ml Dexamethasone (Dexamethasone) Confirm Administered Dose 4 mg .ROUTE .STK-MED ONE Stop: 02/02/17 07:37 Diazepam (Valium) 5 mg IVPUSH Q6H PRN PRN Reason: Spasms Ephedrine Sulfate (Ephedrine Sulfate) Confirm Administered Dose 50 mg .ROUTE .STK-MED ONE Stop: 02/02/17 12:06 Fentanyl (Sublimaze) Confirm Administered Dose 250 mcg .ROUTE .STK-MED ONE Stop: 02/02/17 07:37 Fentanyl (Sublimaze) Confirm Administered Dose 100 mcg .ROUTE .STK-MED ONE Stop: 02/02/17 11:52 Fentanyl (Sublimaze) Confirm Administered Dose 100 mcg .ROUTE .STK-MED ONE Stop: 02/02/17 13:08 Glycopyrrolate () Confirm Administered Dose 1 mg .ROUTE .STK-MED ONE Stop: 02/02/17 07:37 Hydromorphone HCl (Dilaudid) 1 mg IVPUSH Q2H PRN PRN Reason: Pain Last Admin: 02/02/17 18:22 Dose: 1 mg Lactated Ringer's (Ringers, Lactated) 1,000 mls @ 100 mls/hr IV ASDIRECTED [facility] Last Admin: 02/03/17 00:39 Dose: 100 mls/hr Cefazolin Sodium 2 gm/ Sodium (Chloride) 50 mls @ 100 mls/hr IV ONETIME ONE Stop: 02/02/17 09:29 Last Admin: 02/02/17 10:15 Dose: 100 mls/hr Lactated Ringer's (Ringers, Lactated) Confirm Administered Dose 1,000 mls @ as directed .ROUTE .STK-MED ONE Stop: 02/02/17 11:24 Cefazolin Sodium 1 gm/ Sodium (Chloride) 50 mls @ 100 mls/hr IV Q8H [facility] Stop: 02/03/17 07:14 Last Admin: 02/02/17 17:20 Dose: Not Given Cefazolin Sodium/Dextrose 1 gm (/ Premix) 50 mls @ 100 mls/hr IV Q8H [facility] Stop: 02/03/17 10:29 Last Admin: 02/03/17 02:53 Dose: 100 mls/hr Naloxone HCl (Narcan) 0.2 mg IVPUSH ONETIME PRN PRN Reason: Oversedation Stop: 02/02/17 14:42 Neostigmine Methylsulfate (Neostigmine) Confirm Administered Dose 5 mg .ROUTE .STK-MED ONE Stop: 02/02/17 07:37 Ondansetron HCl (Zofran) Confirm Administered Dose 4 mg .ROUTE .STK-MED ONE Stop: 02/02/17 07:37 Ondansetron HCl (Zofran) 8 mg IVPUSH Q4H PRN PRN Reason: Nausea/Vomiting Last Admin: 02/03/17 08:06 Dose: 8 mg Povidone Iodine (Betadine 10% Soln) Confirm Administered Dose 1 ml .ROUTE .STK- MED ONE Stop: 02/02/17 09:34 Last Admin: 02/02/17 11:13 Dose: 1 ml Povidone Iodine (Betadine 10% Soln) Confirm Administered Dose 1 ml .ROUTE .STK- MED ONE Stop: 02/02/17 13:29 Last Admin: 02/02/17 14:00 Dose: 1 ml Propofol (Diprivan 20 Ml) Confirm Administered Dose 200 mg .ROUTE .STK-MED ONE Stop: 02/02/17 07:37 Rocuronium [place] (Zemuron) Confirm Administered Dose 50 mg .ROUTE .STK-MED ONE Stop: 02/02/17 07:37 Sodium Chloride (Saline Flush) 10 ml FLUSH ASDIRECTED PRN PRN Reason: Keep Vein Open Thrombin (Thrombin-Jmi) Confirm Administered Dose 10,000 unit .ROUTE .STK-MED ONE Stop: 02/02/17 09:34 Last Admin: 02/02/17 11:14 Dose: 10,000 unit - Exam General: Reports: alert, oriented Back Exam: Reports: normal inspection Extremities: Reports: no edema Skin: Reports: warm, dry, intact Wound/Incisions: Reports: healing well, dressing dry and intact, no drainage Neurological: Reports: no new focal deficit Psy/Mental Status: Reports: alert, normal affect, normal mood Physical Findings Comments:: SPINE Lumbar Spine: Inspection/palpation: Normal symmetry and appearance without tenderness. Range of motion: Full range of motion without pain. Stability: Stable through range of motion. Strength: Normal muscle strength and tone. Skin: Incision is clean dry and intact. Right upper extremity: Inspection/palpation: Normal symmetry and appearance without tenderness. Range of motion: Full range of motion without pain. Stability: Stable through range of motion. Strength: Normal muscle strength and tone. Skin: Normal skin tone without rashes or lesions. Left upper extremity: Inspection/palpation: Normal symmetry and appearance without tenderness. Range of motion: Full range of motion without pain. Stability: Stable through range of motion. Strength: Normal muscle strength and tone. Skin: Normal skin tone without rashes or lesions. Right lower extremity: Inspection/palpation: Normal symmetry and appearance without tenderness. Range of motion: Full range of motion without pain. Stability: Stable through range of motion. Strength: Normal muscle strength and tone. Skin: Normal skin tone without rashes or lesions. Left lower extremity: Inspection/palpation: Normal symmetry and appearance without tenderness. Range of motion: Full range of motion without pain. Stability: Stable through range of motion. Strength: Normal muscle strength and tone. Skin: Normal skin tone without rashes or lesions. *Q Meaningful Use (DIS) - VTE *Q VTE Criteria *Q: - Stroke *Q Stroke Criteria *Q: - AMI *Q AMI Criteria *Q:
[2017-02-05] MEDS ORDERED: Bisacodyl 10 MG Supp RECTAL ONE (10:00)
[2017-02-05 11:26] VITALS: BP 122/70
== END 2017-02-05 13:06 | DRG 460 ==
LOC: JP.SDS 06:50 → JP.SDSSCHI 06:50 → EDSTATUS 08:30 → JP.MS 14:41
PROVIDERS: ADMIT Orthopaedic Surgery; ATTEND Orthopaedic Surgery
PROC: 0SG00Z1 (ICD-10-PCS; principal; 2017-02-02)
DX: M48.06 Spinal stenosis, lumbar region (principal); M43.16 Spondylolisthesis, lumbar region; M54.16 Radiculopathy, lumbar region; E78.00 Pure hypercholesterolemia, unspecified; I10 Essential (primary) hypertension; F32.9 Major depressive disorder, single episode, unspecified; Z86.73 Personal history of transient ischemic attack (TIA), and cerebral infarction without residual deficits; M19.90 Unspecified osteoarthritis, unspecified site; M54.9 Dorsalgia, unspecified; G89.29 Other chronic pain; J30.9 Allergic rhinitis, unspecified; Z87.440 Personal history of urinary (tract) infections; H91.90 Unspecified hearing loss, unspecified ear; Z88.5 Allergy status to narcotic agent; Z88.8 Allergy status to other drugs, medicaments and biological substances; R53.1 Weakness
CPT/HCPCS: 36415; 76001; 80048; 85025; 94762; 97110-GP; 97112-GP; 97116-GP; 97161-GP; 97165-GO; 97530-GP; 97535-GO; 97535-GP; A9270-GY; C1713; J0690; J1100; J1170; J2405; J2704; J3010; J7050; J7120; J7620; J8540

== ENCOUNTER 2017-09-15 07:22 | Day surgery (SDC) | payer MEDICARE, BC ==
[2017-09-15] MEDS ORDERED: Sodium Chloride 0.9% 10 ML Syringe FLUSH PRN (08:00)
[2017-09-15 09:33] VITALS: BP 141/93
--- NOTE | 2017-09-15 13:53 | OR ---
DATE OF PROCEDURE: 09/15/2017 POSTOPERATIVE CARE: Postoperative care will be provided mainly at the [address] [place] [address] [facility] in conjunction with [facility]. PREOPERATIVE DIAGNOSIS: Cataract, right eye. PREOPERATIVE DIAGNOSIS: Cataract, right eye. PROCEDURE: Cataract extraction, phacoemulsification with intraocular lens placement, right eye. ANESTHESIA: Topical and intracameral. ESTIMATED BLOOD LOSS: Minimal. COMPLICATIONS: None. PATHOLOGY SPECIMENS: None. SURGICAL FINDINGS: None. INDICATION FOR PROCEDURE: The patient is a 77-year-old female with history of a visually significant cataract in the right eye, which interfered with activities of daily living. This consisted of a nuclear sclerosis cataract. Following careful discussion of the risks, benefits and alternatives to cataract extraction with intraocular lens placement including blindness and , the patient elected to proceed, and informed, written consent was obtained prior to the procedure. DESCRIPTION OF THE PROCEDURE: The patient was previously identified, and a theron placed above the right eye. All sources, including the patient, indicated that the right eye was the correct eye. The patient was subsequently taken to the operating room where standard monitors were applied. The patient was then prepped and draped in the usual sterile fashion for ophthalmic surgery. Attention was first directed at the 12 o'clock position where a paracentesis port was fashioned. Shugar solution followed by Viscoat was instilled into the eye. Attention was then directed to the 8:30 position where a triplanar incision was made in a near-clear manner using a keratome. A continuous capsulorrhexis was then made using a combination of the cystotome and Utrata forceps. Hydrodissection was achieved using a balanced salt solution, and the lens rotated nicely. Phacoemulsification was then done using a modified [id number] technique without complication. Phaco time was 7.40 CDE. The remaining cortex was removed using the irrigation/aspiration handpiece. Provisc was then instilled into the eye. A Technis lens, model [id number], at 21.0 diopters was then placed in the capsular bag using an [place] injector. The remaining viscoelastic was removed using the irrigation/aspiration forceps. All wounds were then checked and found to be watertight. The lid speculum and drapes were removed. Maxitrol ointment was placed in the patient's right eye, and the eye was shielded. The patient tolerated the procedure well. The patient was instructed to follow up tomorrow. All needle and sponge counts were correct at the end of the procedure. Kristal Mckeon MD /[id number]
== END 2017-09-15 09:51 | disposition home or self-care (01) ==
LOC: JP.SDS 07:22
PROVIDERS: ATTEND Ophthalmology
DX: H25.11 Age-related nuclear cataract, right eye (principal); Z88.8 Allergy status to other drugs, medicaments and biological substances
CPT/HCPCS: 66984; J7050; C1780

== ENCOUNTER 2017-09-29 06:10 | Day surgery (SDC) | payer MEDICARE, BC ==
[2017-09-29] MEDS ORDERED: Sodium Chloride 0.9% 10 ML Syringe FLUSH PRN (06:30)
[2017-09-29 06:47] VITALS: BP 137/74
--- NOTE | 2017-09-29 10:17 | OR ---
DATE OF PROCEDURE: 09/29/2017 POSTOPERATIVE CARE: Postoperative care will be provided mainly at the [address] [place] [address] [facility] in conjunction with [facility]. PREOPERATIVE DIAGNOSIS: Cataract, left eye. PREOPERATIVE DIAGNOSIS: Cataract, left eye. PROCEDURE: Cataract extraction, phacoemulsification with intraocular lens placement, left eye. ANESTHESIA: Topical and intracameral. ESTIMATED BLOOD LOSS: Minimal. COMPLICATIONS: None. PATHOLOGY SPECIMENS: None. SURGICAL FINDINGS: None. INDICATION FOR PROCEDURE: The patient is a 77-year-old female with history of a visually significant cataract in the left eye, which interfered with activities of daily living. This consisted of a nuclear sclerosis cataract. Following careful discussion of the risks, benefits and alternatives to cataract extraction with intraocular lens placement including blindness and , the patient elected to proceed, and informed, written consent was obtained prior to the procedure. DESCRIPTION OF THE PROCEDURE: The patient was previously identified, and a theron placed above the left eye. All sources, including the patient, indicated that the left eye was the correct eye. The patient was subsequently taken to the operating room where standard monitors were applied. The patient was then prepped and draped in the usual sterile fashion for ophthalmic surgery. Attention was first directed at the 12 o'clock position where a paracentesis port was fashioned. Shugar solution followed by Viscoat was instilled into the eye. Attention was then directed to the 8:30 position where a triplanar incision was made in a near-clear manner using a keratome. A continuous capsulorrhexis was then made using a combination of the cystotome and Utrata forceps. Hydrodissection was achieved using a balanced salt solution, and the lens rotated nicely. Phacoemulsification was then done using a modified [id number] technique without complication. Phaco time was 3.58 CDE. The remaining cortex was removed using the irrigation/aspiration handpiece. Provisc was then instilled into the eye. A Technis lens, model [id number], at 21.0 diopters was then placed in the capsular bag using an [place] injector. The remaining viscoelastic was removed using the irrigation/aspiration forceps. All wounds were then checked and found to be watertight. The lid speculum and drapes were removed. Maxitrol ointment was placed in the patient's left eye, and the eye was shielded. The patient tolerated the procedure well. The patient was instructed to follow up tomorrow. All needle and sponge counts were correct at the end of the procedure. Kristal Mckeon MD /[id number]
== END 2017-09-29 08:30 | disposition home or self-care (01) ==
LOC: JP.SDS 06:10
PROVIDERS: ATTEND Ophthalmology
DX: H25.12 Age-related nuclear cataract, left eye (principal); J44.9 Chronic obstructive pulmonary disease, unspecified; I10 Essential (primary) hypertension; K21.9 Gastro-esophageal reflux disease without esophagitis; F32.9 Major depressive disorder, single episode, unspecified; G47.33 Obstructive sleep apnea (adult) (pediatric); E66.9 Obesity, unspecified; I63.9 Cerebral infarction, unspecified; Z68.30 Body mass index [BMI] 30.0-30.9, adult
CPT/HCPCS: C1780

== ENCOUNTER 2018-10-31 05:47 | Day surgery (SDC) | payer MEDICARE, BC ==
[2018-10-31] MEDS ORDERED: Bupivacaine 0.5%/EPINEPHrine 1:200,000 50 ML MDV ONE ×2 (06:55→07:24)
[2018-10-31] MEDS ORDERED: methylPREDNISolone Acetate 80 MG/ML SDV ONE (06:55)
[2018-10-31] MEDS ORDERED: Lactated Ringers 1,000 ML IV SCH (07:00)
[2018-10-31] MEDS ORDERED: fentaNYL 250 MCG/5 ML SDV ONE (07:21)
[2018-10-31] MEDS ORDERED: Neostigmine Methylsulfate 1 MG/ML 5 ML Syringe ONE (07:22)
[2018-10-31] MEDS ORDERED: Propofol 200 MG/20 ML SDV ONE (07:22)
[2018-10-31] MEDS ORDERED: Rocuronium 50 MG/5 ML Vial ONE (07:22)
[2018-10-31] MEDS ORDERED: Dexamethasone 4 MG/ML SDV ONE (07:22)
[2018-10-31] MEDS ORDERED: Ondansetron 4 MG/2 ML SDV ONE (07:22)
[2018-10-31] MEDS ORDERED: Glycopyrrolate 0.2 MG/ML 5 ML MDV ONE (07:22)
[2018-10-31] MEDS ORDERED: ceFAZolin 2 GM in Premix Bag 1 BAG IV ONE (07:30)
[2018-10-31] MEDS ORDERED: ceFAZolin 2 GM in Sodium Chloride 0.9% 100 ML IV ONE (07:30)
[2018-10-31] MEDS ORDERED: Acetaminophen/HYDROcodone 325-5 MG Tab PO ONE (10:04)
[2018-10-31 12:12] VITALS: BP 137/74
--- NOTE | 2018-10-31 12:23 | OR ---
DATE OF PROCEDURE: 10/31/2018 DIAGNOSTIC PREOPERATIVE: 1. Bilateral meniscal tear, right knee. 2. Osteoarthritis, grade 3, grade 4, all 3 compartments. DIAGNOSTIC POSTOPERATIVE: 1. Bilateral meniscal tear, right knee. 2. Osteoarthritis, grade 3, grade 4, all 3 compartments. INTERVENTION: Scope, right knee. 1. Shaving medial lateral meniscus. 2. Shaving to stable chondral base and medial and lateral femoral condyle. BLOOD LOSS: Minimum. COMPLICATION: No complication. MEDICATIONS: Injection of 8 mL of Marcaine, 80 mg of Depo-Medrol, right knee. INDICATION: Isabell is a 78-year-old, had been having some knee pain in right side going on for the last year. She had a cortisone injection, minimum relief. Mostly felt in lateral part of her knee with a catching sensation, buckling sensation. She had an MRI done, shows moderate arthritic changes of all 3 compartments. A tear of the medial meniscus posterior horn, but also a tear of the lateral meniscus, complex tear. Lateral subluxation of the meniscus. Because she had failed conservative treatment and it was more a sensation of catching and buckling sensation of the lateral part of her knee with a flipped meniscus, it was decided to proceed with knee scope initially. I had discussed with the patient the possible risks, benefits, alternatives, and complications of surgery. The nature of the surgery was explained. All questions were answered and I had informed consent. DESCRIPTION OF PROCEDURE: The patient was brought to the OR. I did my markings beforehand at the right knee and she did receive antibiotics preop. The [employer] DET[employer] MACHINE OPERATOR proceeded with general anesthesia. The patient was put on her back. A tourniquet was applied to the right proximal quadriceps. Sterile prep and dressing were done in the usual manner on the right knee. Time-out was taken to identify the correct surgical site. The leg was elevated, tourniquet was raised to 300 mmHg. The knee was bent 90 degrees. An anterolateral portal incision was done with the scalpel. A blunt probe was entered in the articulation followed by irrigation and camera. Visualizing the medial and lateral gutters did show some diffuse inflammation, folding of the fat, but no loose bodies. The patella intercondylar notch showed some grade 3 mostly without any significant fraying, but certainly some grade 3 osteoarthritic changes. The medial compartment showed grade 3, grade 4 medial condyle, grade 2, grade 3 plateau with a horizontal tear of the mid horn of the medial meniscus. The ACL was normal. The lateral compartment with significant degenerative tear of the mid horn, anterior horn of the meniscus. We could see a flipped meniscus almost in the intercondylar notch with arthritic changes, again grade 3, grade 4 lateral condyle with significant fraying of the cartilage and grade 3 lateral plateau. Incision was done at the anterior medial portal with the shaver. Removed all that fragment of the lateral meniscus, shaved the mid anterior horn and slightly posterior horn of the lateral meniscus tear, shaved the middle horn of the medial meniscus, shaved to a stable chondral base of the medial and lateral condyle. The knee was washed with saline, dried. All instrumentation removed. The skin was closed with nylon 3-0 simple sutures. An injection of 8 mL of Marcaine, 80 mg of Depo-Medrol was done. A sterile dressing was applied. Tourniquet was released. Blood loss was minimal. There was no complication. The patient tolerated well the operation. She is in recovery room in good condition. Víctor Barrett MD /[id number]
== END 2018-10-31 10:15 | disposition home or self-care (01) ==
LOC: JP.SDS 05:47
PROVIDERS: ATTEND Orthopaedic Surgery
DX: M23.241 Derangement of anterior horn of lateral meniscus due to old tear or injury, right knee (principal); M23.231 Derangement of other medial meniscus due to old tear or injury, right knee; M23.261 Derangement of other lateral meniscus due to old tear or injury, right knee; M17.11 Unilateral primary osteoarthritis, right knee; I10 Essential (primary) hypertension; E66.01 Morbid (severe) obesity due to excess calories; Z68.31 Body mass index [BMI] 31.0-31.9, adult; F32.9 Major depressive disorder, single episode, unspecified; K21.9 Gastro-esophageal reflux disease without esophagitis; E78.5 Hyperlipidemia, unspecified; G47.33 Obstructive sleep apnea (adult) (pediatric); Z79.02 Long term (current) use of antithrombotics/antiplatelets; Z79.899 Other long term (current) drug therapy; Z88.5 Allergy status to narcotic agent; Z88.8 Allergy status to other drugs, medicaments and biological substances
CPT/HCPCS: 29880; A9270; J0690; J1040; J1100; J2405; J2704; J2710; J3010; J3490; J7120

== ENCOUNTER 2019-02-08 09:19 | Emergency (ER) | payer MEDICARE, BC ==
[2019-02-08] MEDS ORDERED: Aluminum Hydroxide/Magnesium Hydroxide/Simethicone Susp 30 ML Cup PO ONE (10:01)
[2019-02-08] MEDS ORDERED: Simethicone 80 MG Tab.Chew PO ONE (10:01)
[2019-02-08] MEDS ORDERED: Aspirin 81 MG Tab.Chew PO ONE (10:02)
--- NOTE | 2019-02-08 10:08 | EDM.PDOC ---
ED HPI GENERAL MEDICAL PROBLEM - General Chief Complaint: General Stated Complaint: HAD SOME HEART ISSUES YESTERDAY BECAME DIZZY Time Seen by Provider: 02/08/19 09:50 Source of Information: Reports: Patient, Old Records, RN History Limitations: Reports: No Limitations - History of Present Illness INITIAL COMMENTS - FREE TEXT/NARRATIVE: 78 yo female presents with intermittent L sided chest discomfort associated with increased burping over the past week. She has not had nausea or diaphoresis. Sx's are not triggered by anything, even eating or exertion. She called the clinic yesterday and was told to call 911. She declined that suggestion and now presents for evaluation. She does have a remote hx of peptic ulcer dz, but cannot recall the sx's. She has no black or bloody stools. She has not attempted any self-treatment. Seems to burp even when not eating or drinking. No abdominal pain. Her BM's are formed, small in volume and frequent(4 -5/day). Onset: Gradual Onset Date: 02/01/19 Duration: Week(s): (1), Waxing/Waning Location: Reports: Chest Quality: Reports: Dull Severity: Mild Improves with: Reports: None Worsens with: Reports: None Context: Reports: Other (see HPI) Associated Symptoms: Reports: Chest Pain. 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) (none) - Related Data Allergies Allergy/AdvReac Type Severity Reaction Status Date / Time morphine Allergy Itching Verified 02/08/19 09:38 paroxetine AdvReac Dizziness Verified 02/08/19 09:38 Home Meds: Home Meds Calcium Carbonate/Vitamin D3 [Calcium 600 + Vit D 200] 1 each PO BID 05/27/16 [ History] Cetirizine [ZyrTEC] 10 mg PO DAILY 05/27/16 [History] Citalopram Hydrobromide [Celexa] 10 mg PO DAILY 05/27/16 [History] Clopidogrel [Plavix] 75 mg PO DAILY 05/27/16 [History] HCTZ/Triamterene [Maxzide 25-37.5 MG] 75 mg PO DAILY 05/27/16 [History] Ketotifen [Ketotifen 0.025% Ophth Soln] 1 drop EYEBOTH DAILY PRN 05/27/16 [ History] Metoprolol Tartrate [Lopressor] 25 mg PO Q12HR 05/27/16 [History] Multivitamin [Multi-Vitamin Daily] 1 tab PO DAILY 05/27/16 [History] Nystatin [Nystatin Crm] 1 applic TOP BID 05/27/16 [History] [place]-3/DHA/Epa/Fish Oil [[place]-3 Fish Oil 1,000 MG Sfgl] 1,000 mg PO BID [History] Triamcinolone Acetonide [Kenalog 0.1% Crm] 1 applic TOP BID PRN 05/27/16 [ History] Pravastatin [Pravachol] 10 mg PO DAILY 05/31/16 [History] Acetaminophen [Tylenol] 650 mg PO Q6H PRN 10/30/18 [History] Albuterol Sulfate [Proair Hfa] 2 puff INH Q4H PRN 10/30/18 [History] Calcium Carbonate/Vitamin D3 [Calcium Carb 500 MG] 1 tab CHEW ASDIRECTED PRN [History] Propylene Glycol [Lubricant Eye Drop] 1 drop EYEBOTH BID PRN 10/30/18 [History] Pyrithione Zinc [Dandruff Shampoo] 1 applic TOP DAILY 10/30/18 [History] Lansoprazole [Prevacid] 30 mg PO DAILY 02/08/19 [History] Past Medical History HEENT History: Reports: Allergic Rhinitis, Cataract, Hard of Hearing Cardiovascular History: Reports: High Cholesterol, Hypertension, Other (See Below) Other Cardiovascular History: in grade school had blood clot in thigh Respiratory History: Reports: Bronchitis, Recurrent, COPD, Other (See Below) Other Respiratory History: emphysema Gastrointestinal History: Reports: Diverticulosis, Gastritis, Hemorrhoids Genitourinary History: Reports: UTI, Recurrent 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 right shoulder pain Neurological History: Reports: CVA, TIA Psychiatric History: Reports: Depression Endocrine/Metabolic History: Reports: None Hematologic History: Reports: None Immunologic History: Reports: None Oncologic (Cancer) History: Reports: None Dermatologic History: Reports: Other (See Below) Other Dermatologic History: rash - Infectious Disease History Infectious Disease History: Reports: Chicken Pox, Measles - Past Surgical History Head Surgeries/Procedures: Reports: None HEENT Surgical History: Reports: Cataract Surgery, Tonsillectomy Cardiovascular Surgical History: Reports: None Respiratory Surgical History: Reports: None GI Surgical History: Reports: Colonoscopy, Hernia Repair/Other Female Surgical History: Reports: Breast Biopsy, Hysterectomy, Salpingo- Oophorectomy Endocrine Surgical History: Reports: None Neurological Surgical History: Reports: Other (See Below) Other Neurological Surgeries/Procedures: back surgery 2017 Musculoskeletal Surgical History: Reports: Arthroscopic Knee, Shoulder Surgery Oncologic Surgical History: Reports: None Dermatological Surgical History: Reports: None Social & Family History - Family History Family Medical History: Noncontributory - Tobacco Use Smoking Status *Q: Never Smoker - Caffeine Use Caffeine Use: Reports: Coffee - Recreational Drug Use Recreational Drug Use: No ED ROS GENERAL - Review of Systems Review Of Systems: See Below Constitutional: Reports: No Symptoms HEENT: Reports: No Symptoms Respiratory: Reports: No Symptoms Cardiovascular: Reports: Chest Pain Endocrine: Reports: No Symptoms GI/Abdominal: Reports: Other (burping, frequent small volume stools). Denies: Abdominal Pain, Anorexia, Black Stool, Bloody Stool, Constipation, Diarrhea, Distension, Hematemesis, Hematochezia, Melena, Nausea, Vomiting : Reports: No Symptoms Musculoskeletal: Reports: No Symptoms Skin: Reports: No Symptoms Neurological: Reports: No Symptoms ED EXAM, GENERAL - Physical Exam Exam: See Below Exam Limited By: No Limitations General Appearance: Alert, WD/WN, No Apparent Distress Eye Exam: Bilateral Eye: Normal Inspection Ears: Normal External Exam, Normal Canal, Hearing Grossly Normal Ear Exam: Bilateral Ear: Auricle Normal, Canal Normal Nose: Normal Inspection, No Blood Throat/Mouth: Normal Inspection, Normal Lips, Normal Oropharynx, Normal Voice, No Airway Compromise Head: Atraumatic, Normocephalic Neck: Normal Inspection, Non-Tender Respiratory/Chest: No Respiratory Distress, Lungs Clear, Normal Breath Sounds, No Accessory Muscle Use, Chest Non-Tender, Other (no chest wall pain) Cardiovascular: Regular Rate, Rhythm, No Edema GI/Abdominal: Normal Bowel Sounds Back Exam: Normal Inspection. No: CVA Tenderness (R), CVA Tenderness (L) Extremities: Normal Inspection, Normal Range of Motion, Non-Tender, No Pedal Edema Neurological: Alert, Oriented, CN II-XII Intact, Normal Cognition, No Motor/ Sensory Deficits Psychiatric: Normal Affect, Normal Mood Skin Exam: Warm, Dry, Intact, Normal Color, No Rash Course - Vital Signs Text/Narrative:: No change in sx's with Maalox/simethicone po. Last Recorded V/S: Last Vital Signs Temp 36.6 C 02/08/19 09:36 Pulse 62 02/08/19 11:03 Resp 23 H 02/08/19 11:03 BP 139/75 02/08/19 11:03 Pulse Ox 94 L 02/08/19 11:03 - Orders/Labs/Meds Orders: Active Orders 24 hr Category Date Time Status Chest 2V [CR] Stat Exams 02/08/19 11:04 Taken Hemoccult [OCCULT BLOOD DIAGNOSTIC] [OP] Stat Lab 02/08/19 10:01 Ordered Labs: Laboratory Tests 02/08/19 02/08/19 02/08/19 Range/Units 10:11 10:11 11:03 WBC 5.8 (4.5-11.0) K/uL RBC 4.77 (3.30-5.50) M/uL Hgb 14.4 D (12.0-15.0) g/dL Hct 43.5 (36.0-48.0) % MCV 91 (80-98) fL MCH 30 (27-31) pg MCHC 33 (32-36) % Plt Count 203 (150-400) K/uL D-Dimer, Quantitative 453 H (0.0-400.0) ng/mL Sodium 140 (140-148) mmol/L Potassium 3.7 (3.6-5.2) mmol/L Chloride 101 (100-108) mmol/L Carbon Dioxide 30 (21-32) mmol/L Anion Gap 9.4 (5.0-14.0) mmol/L BUN 15 (7-18) mg/dL Creatinine 1.1 H (0.6-1.0) mg/dL Est Cr Clr Drug Dosing 33.34 mL/min Estimated GFR (MDRD) 48 L (>60) Glucose 103 (74-106) mg/dL Calcium 9.5 D (8.5-10.1) mg/dL Troponin I < 0.017 (0.000-0.056) ng/mL Meds: Medications Discontinued Medications Generic Name Dose Route Start Last Admin Trade Name Hodan PRN Reason Stop Dose Admin Al Hydroxide/Mg Hydroxide 30 ml 02/08/19 10:01 02/08/19 10:09 Mag-Al Plus PO 02/08/19 10:02 30 ml ONETIME ONE Administration Aspirin 324 mg 02/08/19 10:02 02/08/19 10:16 Aspirin PO 02/08/19 10:03 Not Given ONETIME ONE Simethicone 160 mg 02/08/19 10:01 02/08/19 10:09 Simethicone PO 02/08/19 10:02 160 mg ONETIME ONE Administration - Radiology Interpretation Free Text/Narrative:: CXR-neg Abdominal X-ray-neg Departure - Departure Time of Disposition: 11:53 Disposition: Home, Self-Care 01 Condition: Good Clinical Impression: Nonspecific chest pain, Belching - Discharge Information *PRESCRIPTION DRUG MONITORING PROGRAM REVIEWED*: No *COPY OF PRESCRIPTION DRUG MONITORING REPORT IN PATIENT XOCHILT: No Instructions: Nonspecific Chest Pain, Kecj-[id number] Referrals: Arsen Hall MD [Primary Care Provider] - Forms: ED Department Discharge Additional Instructions: Take acetaminophen as needed for pain relief. Use simethicone per package instructions for your belching. Recheck with your doctor if symptoms persist. Return if worse. - My Orders Last 24 Hours: My Active Orders 02/08/19 10:01 Hemoccult [OCCULT BLOOD DIAGNOSTIC] [OP] Stat 02/08/19 11:04 Chest 2V [CR] Stat - Assessment/Plan Last 24 Hours: My Active Orders 02/08/19 10:01 Hemoccult [OCCULT BLOOD DIAGNOSTIC] [OP] Stat 02/08/19 11:04 Chest 2V [CR] Stat
[2019-02-08 11:03] VITALS: BP 139/75
--- NOTE | 2019-02-08 11:20 | CRLCR ---
INDICATION: Abdominal pain. TECHNIQUE: Supine 1 view abdomen IMPRESSION : No signs for obstruction. Normal colonic stool volume. FINDINGS: Lumbar stabilization and fusion at the lower lumbar spine with intact hardware. Splenic artery calcifications are incidentally noted. Dictated by Mandeep Acosta MD @ Feb 08 2019 11:18AM Signed by Dr. Mandeep Acosta @ Feb 08 2019 11:19AM
--- NOTE | 2019-02-08 12:19 | CRLCR ---
INDICATION: Left-sided chest pain TECHNIQUE: Chest 2 views. COMPARISON: January 24, 2017 FINDINGS: Cardiovascular and mediastinum: Heart size and vasculature are normal in caliber and appearance. Mediastinum is within normal limits. Lungs and pleural spaces: Lungs are clear. No sign of infiltrate or mass. No sign of pleural effusion. No pneumothorax. Bones and soft tissues: No significant findings. IMPRESSION: No sign of acute disease. Dictated by Tsering Hassan MD @ Feb 08 2019 12:16PM Signed by Dr. Tsering Hassan @ Feb 08 2019 12:18PM
== END 2019-02-08 12:01 | disposition home or self-care (01) ==
LOC: JP.ED 09:19
DX: R07.9 Chest pain, unspecified (principal); R14.2 Eructation; E78.00 Pure hypercholesterolemia, unspecified; I10 Essential (primary) hypertension; J44.9 Chronic obstructive pulmonary disease, unspecified; F32.9 Major depressive disorder, single episode, unspecified; Z88.5 Allergy status to narcotic agent; Z79.899 Other long term (current) drug therapy; Z79.01 Long term (current) use of anticoagulants
CPT/HCPCS: 36415; 71046; 74018; 80048; 84484; 85027; 85379; 99284; A9270; 99283

== ENCOUNTER 2019-08-06 07:30 | Inpatient (IN) | payer MEDICARE, BC ==
[~2019-08-06 07:30] MED LIST: Povidone-Iodine 10% Soln 118.25 ML Bottle ONE
[2019-08-06] MEDS ORDERED: Propofol 200 MG/20 ML SDV ONE (08:23)
[2019-08-06] MEDS ORDERED: Midazolam 1 MG/ML 2 ML SDV ONE (08:23)
[2019-08-06] MEDS ORDERED: fentaNYL 100 MCG/2 ML SDV ONE (08:23)
[2019-08-06] MEDS ORDERED: Gabapentin 300 MG Cap PO ONE (09:45)
[2019-08-06] MEDS: Nozin Nasal Sanitizer NASBOTH SCH ×2 (09:48→21:02)
[2019-08-06] MEDS: Lactated Ringers 1,000 ML IV SCH ×2 (10:45→16:54)
[2019-08-06] MEDS ORDERED: Bupivacaine 0.25% 10 ML SDV ONE (10:46)
[2019-08-06] MEDS ORDERED: ceFAZolin 2 GM in Sodium Chloride 0.9% 50 ML IV ONE (11:00)
[2019-08-06] MEDS ORDERED: Lactated Ringers 1,000 ML ONE (11:52)
[2019-08-06] MEDS ORDERED: Morphine 2 MG/ML Syringe IVPUSH PRN (13:07)
[2019-08-06] MEDS ORDERED: Magnesium Hydroxide 400 MG/5 ML Susp 30 ML Cup PO PRN (13:07)
[2019-08-06] MEDS ORDERED: Acetaminophen/HYDROcodone 325-5 MG Tab PO PRN (13:07)
[2019-08-06] MEDS ORDERED: Ondansetron 4 MG/2 ML SDV IVPUSH PRN (13:07)
[2019-08-06] MEDS ORDERED: Albuterol 8 GM Inhaler INH PRN (13:14)
[2019-08-06] MEDS ORDERED: Hypromellose 0.3% Ophth Soln 15 ML Bottle EYEBOTH PRN (13:14)
[2019-08-06] MEDS ORDERED: Ketotifen 0.025% Ophth Soln 5 ML Bottle EYEBOTH PRN (13:14)
--- NOTE | 2019-08-06 13:36 | CR ---
Knee 1V or 2V Rt CLINICAL HISTORY: Postop FINDINGS: Patient is status post total right knee arthroplasty.. Components appear well seated. There is intra-articular subcapsular Impression: Status post recent 3 component total arthroplasty
[2019-08-06] MEDS: Acetaminophen/oxyCODONE 325-5 MG Tab PO PRN ×3 (14:17→21:56)
[2019-08-06] MEDS: ceFAZolin 1 GM in Premix Bag 1 BAG IV SCH (17:40)
[2019-08-06] MEDS ORDERED: Ketorolac 30 MG/ML SDV IVPUSH PRN ×2 (19:14→21:05)
[2019-08-06] MEDS: Metoprolol Tartrate 25 MG Tab PO SCH (21:03)
[2019-08-06] MEDS: Docusate Sodium 100 MG Cap PO SCH (21:03)
[2019-08-07] MEDS: Sodium Chloride 0.9% 1,000 ML IV SCH ×3 (01:31→18:26)
[2019-08-07] MEDS: Acetaminophen/oxyCODONE 325-5 MG Tab PO PRN ×4 (02:23→18:23)
[2019-08-07] MEDS: ceFAZolin 1 GM in Premix Bag 1 BAG IV SCH ×2 (02:23→09:56)
[2019-08-07] MEDS: Citalopram 10 MG Tab PO SCH (08:41)
[2019-08-07] MEDS: Pravastatin 20 MG Tab PO SCH (08:41)
[2019-08-07] MEDS: Docusate Sodium 100 MG Cap PO SCH ×2 (08:42→20:12)
[2019-08-07] MEDS: Hydrochlorothiazide/Triamterene 25-37.5 Tab PO SCH (08:42)
[2019-08-07] MEDS: Clopidogrel 75 MG Tab PO SCH (08:42)
[2019-08-07] MEDS: Pantoprazole 40 MG Tab.CR PO SCH (08:42)
[2019-08-07] MEDS: Metoprolol Tartrate 25 MG Tab PO SCH ×2 (08:42→20:12)
[2019-08-07] MEDS: Cetirizine 10 MG Tab PO SCH (08:42)
[2019-08-07] MEDS: Nozin Nasal Sanitizer NASBOTH SCH ×2 (08:43→20:13)
[2019-08-08] MEDS ORDERED: Calcium Carbonate 500 MG Tab.Chew PO PRN (02:07)
[2019-08-08] MEDS: Sodium Chloride 0.9% 1,000 ML IV SCH ×2 (02:30→10:22)
[2019-08-08] MEDS: Acetaminophen 325 MG Tab PO PRN ×2 (02:58→19:37)
[2019-08-08] MEDS: Acetaminophen/oxyCODONE 325-5 MG Tab PO PRN ×4 (02:58→23:40)
[2019-08-08] MEDS: Pantoprazole 40 MG Tab.CR PO SCH (06:37)
[2019-08-08] MEDS: Docusate Sodium 100 MG Cap PO SCH ×2 (09:18→20:59)
[2019-08-08] MEDS: Metoprolol Tartrate 25 MG Tab PO SCH ×2 (09:18→20:59)
[2019-08-08] MEDS: Clopidogrel 75 MG Tab PO SCH (09:18)
[2019-08-08] MEDS: Cetirizine 10 MG Tab PO SCH (09:18)
[2019-08-08] MEDS: Pravastatin 20 MG Tab PO SCH (09:18)
[2019-08-08] MEDS: Hydrochlorothiazide/Triamterene 25-37.5 Tab PO SCH (09:19)
[2019-08-08] MEDS: Citalopram 10 MG Tab PO SCH (09:19)
[2019-08-08] MEDS: Nozin Nasal Sanitizer NASBOTH SCH ×2 (09:19→20:58)
[2019-08-09 07:22] VITALS: BP 130/75; PULSE 116
[2019-08-09] MEDS: Pravastatin 20 MG Tab PO SCH (09:07)
[2019-08-09] MEDS: Pantoprazole 40 MG Tab.CR PO SCH (09:07)
[2019-08-09] MEDS: Metoprolol Tartrate 25 MG Tab PO SCH (09:07)
[2019-08-09] MEDS: Docusate Sodium 100 MG Cap PO SCH (09:07)
[2019-08-09] MEDS: Citalopram 10 MG Tab PO SCH (09:07)
[2019-08-09] MEDS: Cetirizine 10 MG Tab PO SCH (09:07)
[2019-08-09] MEDS: Clopidogrel 75 MG Tab PO SCH (09:08)
[2019-08-09] MEDS: Nozin Nasal Sanitizer NASBOTH SCH (09:08)
[2019-08-09] MEDS: Hydrochlorothiazide/Triamterene 25-37.5 Tab PO SCH (09:08)
--- NOTE | 2019-08-09 09:26 | PCM.DCSUM1 ---
Discharge Summary - Hospital Course HPI Initial Comments: 79 year old female admitted for right total knee arthroplasty Diagnosis: Stroke: No Modified Harrison Scale: No Symptoms at All Modified Nelda Scale Score: 0 - Discharge Data Discharge Date: 08/09/19 Discharge Disposition: DC/Tfer to SNF 03 Condition: Good - Referral to Home Health Date of Face to Face Encounter: 08/09/19 Primary Care Physician: Arsen Hall MD - Discharge Diagnosis/Problem(s) (1) S/P total knee arthroplasty SNOMED Code(s): 3963897611361, [id number], 1881183063444 ICD Code: Z96.659 - PRESENCE OF UNSPECIFIED ARTIFICIAL KNEE JOINT Status: Acute Current Visit: Yes Qualifiers: Laterality: right Qualified Code(s): Z96.651 - Presence of right artificial knee joint (2) Osteoarthritis of right knee SNOMED Code(s): 452577528640875 ICD Code: M17.11 - UNILATERAL PRIMARY OSTEOARTHRITIS, RIGHT KNEE Status: Acute Current Visit: No Qualifiers: Osteoarthritis type: primary Qualified Code(s): M17.11 - Unilateral primary osteoarthritis, right knee - Patient Summary/Data Operative Procedure(s) Performed: Right total knee Consults: Consultations 08/06/19 13:07 Consult to Case Management/Shutdown Planner [CONS] Routine Comment: Physician Instructions: Service(s) to be Consulted: Case Management Reason for Consult: Plan for Discharge OT Evaluation and Treatment [CONS] Routine Please Evaluate and Treat. OT Reason for Consult: ADL's Pending Discharge: Yes Discharge Disposition: Home w Home Health This query below is only for informational purposes and is not editable. PT Evaluation and Treatment [CONS] Routine Please Evaluate and Treat. PT Reason for Consult: Post op Ortho Surgery Pending Discharge: Yes Discharge Disposition: Home w Home Health Special Instructions: Right knee ROM, ambulation This query below is only for informational purposes and is not editable. Hospital Course: Tolerated procedure well. Poor pain control initially and was not able to get up with PT POD #1. Better POD #2 and was able to get up in halls. Person out and able to void, bowels moving. Still requiring assist with mobility and poor ROM approx 18-88 POD #3. Discharged to SNF. - Patient Instructions Diet: Usual Diet as Tolerated Activity: Apply Ice, As Tolerated, Full Weight Bearing Driving: Do Not Drive Showering/Bathing: May Shower Notify Provider of: Fever, Increased Pain, Swelling and Redness, Drainage - Discharge Plan *PRESCRIPTION DRUG MONITORING PROGRAM REVIEWED*: No *COPY OF PRESCRIPTION DRUG MONITORING REPORT IN PATIENT XOCHILT: No Prescriptions/Med Rec: oxyCODONE HCl/Acetaminophen [Percocet 5-325 mg Tablet] 2 each PO Q6HR PRN #48 tablet PRN Reason: Pain Home Medications: Home Meds Calcium Carbonate/Vitamin D3 [Calcium 600 + Vit D 200] 1 each PO BID 05/27/16 [ History] Cetirizine [ZyrTEC] 10 mg PO DAILY 05/27/16 [History] Citalopram Hydrobromide [Celexa] 10 mg PO DAILY 05/27/16 [History] Clopidogrel [Plavix] 75 mg PO DAILY 05/27/16 [History] HCTZ/Triamterene [Maxzide 25-37.5 MG] 75 mg PO DAILY 05/27/16 [History] Ketotifen [Ketotifen 0.025% Ophth Soln] 1 drop EYEBOTH DAILY PRN 05/27/16 [ History] Metoprolol Tartrate [Lopressor] 25 mg PO Q12HR 05/27/16 [History] Multivitamin [Multi-Vitamin Daily] 1 tab PO DAILY 05/27/16 [History] Nystatin [Nystatin Crm] 1 applic TOP BID 05/27/16 [History] [place]-3/DHA/Epa/Fish Oil [[place]-3 Fish Oil 1,000 MG Sfgl] 1,000 mg PO BID [History] Triamcinolone Acetonide [Kenalog 0.1% Crm] 1 applic TOP BID PRN 05/27/16 [ History] Pravastatin [Pravachol] 10 mg PO DAILY 05/31/16 [History] Acetaminophen [Tylenol] 650 mg PO Q6H PRN 10/30/18 [History] Albuterol Sulfate [Proair Hfa] 2 puff INH Q4H PRN 10/30/18 [History] Calcium Carbonate/Vitamin D3 [Calcium Carb 500 MG] 1 tab CHEW ASDIRECTED PRN [History] Propylene Glycol [Lubricant Eye Drop] 1 drop EYEBOTH BID PRN 10/30/18 [History] Pyrithione Zinc [Dandruff Shampoo] 1 applic TOP DAILY 10/30/18 [History] Lansoprazole [Prevacid] 30 mg PO DAILY 02/08/19 [History] oxyCODONE HCl/Acetaminophen [Percocet 5-325 mg Tablet] 2 each PO Q6HR PRN #48 tablet 08/09/19 [Rx] Oxygen Therapy Mode: Room Air Patient Handouts: Venous Thromboembolism Prevention, Preventing Constipation After Surgery Referrals: Andi Rosenbaum MD [Physician] - 08/21/19 10:30 am - Discharge Summary/Plan Comment DC Time >30 min.: No - General Info Functional Status: Reports: Pain Controlled, Tolerating Diet, Ambulating, Urinating - Review of Systems General: Reports: No Symptoms HEENT: Reports: No Symptoms Pulmonary: Reports: No Symptoms Cardiovascular: Reports: No Symptoms Gastrointestinal: Reports: No Symptoms Genitourinary: Reports: No Symptoms Musculoskeletal: Reports: Leg Pain, Joint Swelling Skin: Reports: No Symptoms Neurological: Reports: No Symptoms Psychiatric: Reports: No Symptoms - Patient Data Vitals - Most Recent: Last Vital Signs Temp 36.9 C 08/09/19 07:21 Pulse 116 H 08/09/19 09:07 Resp 16 08/09/19 07:21 BP 130/75 08/09/19 09:07 Pulse Ox 94 L 08/09/19 07:21 Weight - Most Recent: 75.296 kg I&O - Last 24 hours: Intake & Output 08/08/19 08/09/19 08/09/19 22:59 06:59 14:59 Intake Total 420 Balance 420 Med Orders - Current: Current Medications Acetaminophen (Tylenol) 650 mg PO Q6H PRN PRN Reason: Pain Last Admin: 08/08/19 19:37 Dose: 325 mg Hydrocodone Bitart/Acetaminophen ([place] 325-5 Mg) 1 tab PO Q3H PRN PRN Reason: Pain Albuterol (Ventolin Hfa) 0 gm INH Q4H PRN PRN Reason: Dyspnea Artificial Tears ([place] Mild To Moderate Ophth Soln) 0 ml EYEBOTH BID PRN PRN Reason: Other Bandage/Support Products ( Nasal Process Mechanic) 1 applic NASBOTH BID VIN Stop: 08/12/19 21:01 Last Admin: 08/09/19 09:08 Dose: 1 applic Calcium Carbonate/Glycine (Tums) 1,000 mg PO Q2H PRN PRN Reason: Indigestion Last Admin: 08/08/19 02:22 Dose: 1,000 mg Cetirizine HCl (Zyrtec) 10 mg PO DAILY [facility] Last Admin: 08/09/19 09:07 Dose: 10 mg Citalopram Hydrobromide (Celexa) 10 mg PO DAILY [facility] Last Admin: 08/09/19 09:07 Dose: 10 mg Clopidogrel Bisulfate (Plavix) 75 mg PO DAILY [facility] Last Admin: 08/09/19 09:08 Dose: 75 mg Docusate Sodium (Colace) 100 mg PO BID [facility] Last Admin: 08/09/19 09:07 Dose: 100 mg Ketorolac Tromethamine (Toradol) 15 mg IVPUSH Q8H PRN PRN Reason: Pain Stop: 08/11/19 21:05 Last Admin: 08/06/19 21:57 Dose: 15 mg Ketotifen Fumarate (Ketotifen 0.025% Ophth Soln) 0 ml EYEBOTH DAILY PRN PRN Reason: Allergies Magnesium Hydroxide (Milk Of Magnesia) 30 ml PO BID PRN PRN Reason: Constipation Last Admin: 08/08/19 09:17 Dose: 30 ml Metoprolol Tartrate (Lopressor) 25 mg PO BID [facility] Last Admin: 08/09/19 09:07 Dose: 25 mg Ondansetron HCl (Zofran) 4 mg IVPUSH Q6H PRN PRN Reason: Nausea/Vomiting Oxycodone/Acetaminophen (Percocet 325-5 Mg) 2 tab PO Q4H PRN PRN Reason: Pain Last Admin: 08/08/19 23:40 Dose: 2 tab Pantoprazole Sodium (Protonix) 40 mg PO ACBREAKFAST [facility] Last Admin: 08/09/19 09:07 Dose: 40 mg Pravastatin Sodium (Pravachol) 10 mg PO DAILY [facility] Last Admin: 08/09/19 09:07 Dose: 10 mg Triamterene/HCTZ (Maxzide 25-37.5 Mg) 1 each PO DAILY [facility] Last Admin: 08/09/19 09:08 Dose: 1 each Discontinued Medications Bupivacaine HCl (Sensorcaine-Mpf 0.25%) Confirm Administered Dose 10 ml .ROUTE .STK-MED ONE Stop: 08/06/19 10:47 Fentanyl (Sublimaze) Confirm Administered Dose 100 mcg .ROUTE .STK-MED ONE Stop: 08/06/19 08:24 Gabapentin (Neurontin) 300 mg PO ONETIME ONE Stop: 08/06/19 09:46 Last Admin: 08/06/19 09:45 Dose: 300 mg Cefazolin Sodium 2 gm/ Sodium (Chloride) 50 mls @ 100 mls/hr IV ONETIME ONE Stop: 08/06/19 11:29 Last Admin: 08/06/19 11:05 Dose: 100 mls/hr Lactated Ringer's (Ringers, Lactated) 1,000 mls @ 75 mls/hr IV ASDIRECTED [facility] Last Admin: 08/06/19 16:54 Dose: 75 mls/hr Tranexamic Acid 780 mg/ Sodium (Chloride) 57.8 mls @ 231.2 mls/hr IV ONETIME ONE Stop: 08/06/19 11:14 Last Admin: 08/06/19 11:15 Dose: 231.2 mls/hr Tranexamic Acid 780 mg/ Sodium (Chloride) 57.8 mls @ 231.2 mls/hr IV ONETIME PRN PRN Reason: IF ORDERED BY SURGEON Stop: 08/06/19 18:00 Lactated Ringer's (Ringers, Lactated) Confirm Administered Dose 1,000 mls @ as directed .ROUTE .STK-MED ONE Stop: 08/06/19 11:53 Cefazolin Sodium/Dextrose 1 gm (/ Premix) 50 mls @ 100 mls/hr IV Q8H [facility] Stop: 08/07/19 10:29 Last Admin: 08/07/19 09:56 Dose: 100 mls/hr Sodium Chloride (Normal Saline) 1,000 mls @ 125 mls/hr IV ASDIRECTED [facility] Last Admin: 08/08/19 10:22 Dose: 125 mls/hr Ketorolac Tromethamine (Toradol) 30 mg IVPUSH Q8H PRN PRN Reason: Pain Stop: 08/11/19 19:15 Midazolam HCl (Versed 1 Mg/Ml) Confirm Administered Dose 2 mg .ROUTE .STK-MED ONE Stop: 08/06/19 08:24 Morphine Sulfate (Morphine) 2 mg IVPUSH Q1H PRN PRN Reason: Breakthrough Pain Povidone Iodine (Betadine 10% Soln) Confirm Administered Dose 1 ml .ROUTE .STK- MED ONE Stop: 08/06/19 06:44 Last Admin: 08/06/19 11:55 Dose: 1 ml Propofol (Diprivan 20 Ml) Confirm Administered Dose 200 mg .ROUTE .STK-MED ONE Stop: 08/06/19 08:24 - Exam General: Reports: Alert, Oriented, Cooperative, No Acute Distress HEENT: Reports: Pupils Equal, Pupils Reactive, EOMI, Mucous Membr. Moist/[place] Neck: Reports: Supple, Trachea Midline Lungs: Reports: Clear to Auscultation, Normal Respiratory Effort Cardiovascular: Reports: Regular Rate, Regular Rhythm GI/Abdominal Exam: Normal Bowel Sounds, Soft, Non-Tender, No Distention (Female) Exam: Deferred Rectal (Female) Exam: Deferred Back Exam: Reports: Normal Inspection, Full Range of Motion Extremities: Joint Swelling, Leg Pain, Limited Range of Motion Skin: Reports: Warm, Dry Wound/Incisions: Reports: Healing Well Neurological: Reports: No New Focal Deficit Psy/Mental Status: Reports: Alert, Normal Affect, Normal Mood
[2019-08-09] MEDS: Acetaminophen/oxyCODONE 325-5 MG Tab PO PRN (10:20)
--- NOTE | 2019-08-09 13:02 | PCM.SURGPN ---
- General Info Date of Service: 08/07/19 Date of Surgery/Procedure: 08/06/19 POD#: 1 Functional Status: Reports: Other (pain not well controlled) - Review of Systems General: Reports: No Symptoms HEENT: Reports: No Symptoms Pulmonary: Reports: No Symptoms Cardiovascular: Reports: No Symptoms Gastrointestinal: Reports: Nausea Genitourinary: Reports: No Symptoms Musculoskeletal: Reports: Leg Pain Skin: Reports: No Symptoms Neurological: Reports: No Symptoms Psychiatric: Reports: No Symptoms - Patient Data Vitals - Most Recent: Last Vital Signs Temp 36.9 C 08/09/19 07:21 Pulse 116 H 08/09/19 09:07 Resp 16 08/09/19 07:21 BP 130/75 08/09/19 09:07 Pulse Ox 94 L 08/09/19 07:21 Weight - Most Recent: 75.296 kg I&O - Last 24 Hours: Intake & Output 08/08/19 08/09/19 08/09/19 22:59 06:59 14:59 Intake Total 420 400 Balance 420 400 Med Orders - Current: Current Medications Acetaminophen (Tylenol) 650 mg PO Q6H PRN PRN Reason: Pain Last Admin: 08/08/19 19:37 Dose: 325 mg Hydrocodone Bitart/Acetaminophen ([place] 325-5 Mg) 1 tab PO Q3H PRN PRN Reason: Pain Albuterol (Ventolin Hfa) 0 gm INH Q4H PRN PRN Reason: Dyspnea Artificial Tears (Genteal Mild To Moderate Ophth Soln) 0 ml EYEBOTH BID PRN PRN Reason: Other Bandage/Support Products ( Nasal Chro) 1 applic NASBOTH BID [facility] Stop: 08/12/19 21:01 Last Admin: 08/09/19 09:08 Dose: 1 applic Calcium Carbonate/Glycine (Tums) 1,000 mg PO Q2H PRN PRN Reason: Indigestion Last Admin: 08/08/19 02:22 Dose: 1,000 mg Cetirizine HCl (Zyrtec) 10 mg PO DAILY [facility] Last Admin: 08/09/19 09:07 Dose: 10 mg Citalopram Hydrobromide (Celexa) 10 mg PO DAILY [facility] Last Admin: 08/09/19 09:07 Dose: 10 mg Clopidogrel Bisulfate (Plavix) 75 mg PO DAILY [facility] Last Admin: 08/09/19 09:08 Dose: 75 mg Docusate Sodium (Colace) 100 mg PO BID [facility] Last Admin: 08/09/19 09:07 Dose: 100 mg Ketorolac Tromethamine (Toradol) 15 mg IVPUSH Q8H PRN PRN Reason: Pain Stop: 08/11/19 21:05 Last Admin: 08/06/19 21:57 Dose: 15 mg Ketotifen Fumarate (Ketotifen 0.025% Ophth Soln) 0 ml EYEBOTH DAILY PRN PRN Reason: Allergies Magnesium Hydroxide (Milk Of Magnesia) 30 ml PO BID PRN PRN Reason: Constipation Last Admin: 08/08/19 09:17 Dose: 30 ml Metoprolol Tartrate (Lopressor) 25 mg PO BID [facility] Last Admin: 08/09/19 09:07 Dose: 25 mg Ondansetron HCl (Zofran) 4 mg IVPUSH Q6H PRN PRN Reason: Nausea/Vomiting Oxycodone/Acetaminophen (Percocet 325-5 Mg) 2 tab PO Q4H PRN PRN Reason: Pain Last Admin: 08/09/19 10:20 Dose: 1 tab Pantoprazole Sodium (Protonix) 40 mg PO ACBREAKFAST [facility] Last Admin: 08/09/19 09:07 Dose: 40 mg Pravastatin Sodium (Pravachol) 10 mg PO DAILY [facility] Last Admin: 08/09/19 09:07 Dose: 10 mg Triamterene/HCTZ (Maxzide 25-37.5 Mg) 1 each PO DAILY [facility] Last Admin: 08/09/19 09:08 Dose: 1 each Discontinued Medications Bupivacaine HCl (Sensorcaine-Mpf 0.25%) Confirm Administered Dose 10 ml .ROUTE .STK-MED ONE Stop: 08/06/19 10:47 Fentanyl (Sublimaze) Confirm Administered Dose 100 mcg .ROUTE .STK-MED ONE Stop: 08/06/19 08:24 Gabapentin (Neurontin) 300 mg PO ONETIME ONE Stop: 08/06/19 09:46 Last Admin: 08/06/19 09:45 Dose: 300 mg Cefazolin Sodium 2 gm/ Sodium (Chloride) 50 mls @ 100 mls/hr IV ONETIME ONE Stop: 08/06/19 11:29 Last Admin: 08/06/19 11:05 Dose: 100 mls/hr Lactated Ringer's (Ringers, Lactated) 1,000 mls @ 75 mls/hr IV ASDIRECTED [facility] Last Admin: 08/06/19 16:54 Dose: 75 mls/hr Tranexamic Acid 780 mg/ Sodium (Chloride) 57.8 mls @ 231.2 mls/hr IV ONETIME ONE Stop: 08/06/19 11:14 Last Admin: 08/06/19 11:15 Dose: 231.2 mls/hr Tranexamic Acid 780 mg/ Sodium (Chloride) 57.8 mls @ 231.2 mls/hr IV ONETIME PRN PRN Reason: IF ORDERED BY SURGEON Stop: 08/06/19 18:00 Lactated Ringer's (Ringers, Lactated) Confirm Administered Dose 1,000 mls @ as directed .ROUTE .STK-MED ONE Stop: 08/06/19 11:53 Cefazolin Sodium/Dextrose 1 gm (/ Premix) 50 mls @ 100 mls/hr IV Q8H [facility] Stop: 08/07/19 10:29 Last Admin: 08/07/19 09:56 Dose: 100 mls/hr Sodium Chloride (Normal Saline) 1,000 mls @ 125 mls/hr IV ASDIRECTED [facility] Last Admin: 08/08/19 10:22 Dose: 125 mls/hr Ketorolac Tromethamine (Toradol) 30 mg IVPUSH Q8H PRN PRN Reason: Pain Stop: 08/11/19 19:15 Midazolam HCl (Versed 1 Mg/Ml) Confirm Administered Dose 2 mg .ROUTE .STK-MED ONE Stop: 08/06/19 08:24 Morphine Sulfate (Morphine) 2 mg IVPUSH Q1H PRN PRN Reason: Breakthrough Pain Povidone Iodine (Betadine 10% Soln) Confirm Administered Dose 1 ml .ROUTE .STK- MED ONE Stop: 08/06/19 06:44 Last Admin: 08/06/19 11:55 Dose: 1 ml Propofol (Diprivan 20 Ml) Confirm Administered Dose 200 mg .ROUTE .STK-MED ONE Stop: 08/06/19 08:24 - Exam Wound/Incisions: Dressing Dry and Intact General: Alert, Oriented HEENT: Pupils Equal, Pupils Reactive, EOMI, Mucous Membr. Moist/[place] Neck: Supple Lungs: Clear to Auscultation Cardiovascular: Regular Rate, Regular Rhythm GI/Abdominal Exam: Normal Bowel Sounds, Soft, Non-Tender, No Distention Extremities: Joint Swelling, Limited Range of Motion Skin: Warm, Dry Neurological: No New Focal Deficit Psy/Mental Status: Alert, Normal Affect, Normal Mood - Problem List & Annotations (1) S/P total knee arthroplasty SNOMED Code(s): 4063933060346, 843726836, 1179158164135 Code(s): Z96.659 - PRESENCE OF UNSPECIFIED ARTIFICIAL KNEE JOINT Status: Acute Current Visit: Yes Qualifiers: Laterality: right Qualified Code(s): Z96.651 - Presence of right artificial knee joint (2) Osteoarthritis of right knee SNOMED Code(s): 306348862619912 Code(s): M17.11 - UNILATERAL PRIMARY OSTEOARTHRITIS, RIGHT KNEE Status: Acute Current Visit: No Qualifiers: Osteoarthritis type: primary - Problem List Review Problem List Initiated/Reviewed/Updated: Yes - My Orders Last 24 Hours: Active Orders 24 hr Category Date Time Status Ready for Discharge [RC] PER UNIT ROUTINE Care 08/09/19 09:23 Active Medication Orders Acetaminophen (Tylenol) 650 mg PO Q6H PRN PRN Reason: Pain Last Admin: 08/08/19 19:37 Dose: 325 mg Admin: 08/08/19 02:58 Dose: 325 mg Hydrocodone Bitart/Acetaminophen ([place] 325-5 Mg) 1 tab PO Q3H PRN PRN Reason: Pain Albuterol (Ventolin Hfa) 0 gm INH Q4H PRN PRN Reason: Dyspnea Artificial Tears (Genteal Mild To Moderate Ophth Soln) 0 ml EYEBOTH BID PRN PRN Reason: Other Bandage/Support Products ( Nasal Chro) 1 applic NASBOTH BID [facility] Stop: 08/12/19 21:01 Last Admin: 08/09/19 09:08 Dose: 1 applic Admin: 08/08/19 20:58 Dose: 1 applic Admin: 08/08/19 09:19 Dose: 1 applic Admin: 08/07/19 20:13 Dose: 1 applic Admin: 08/07/19 08:43 Dose: 1 applic Admin: 08/06/19 21:02 Dose: 1 applic Admin: 08/06/19 09:48 Dose: 1 applic Calcium Carbonate/Glycine (Tums) 1,000 mg PO Q2H PRN PRN Reason: Indigestion Last Admin: 08/08/19 02:22 Dose: 1,000 mg Cetirizine HCl (Zyrtec) 10 mg PO DAILY [facility] Last Admin: 08/09/19 09:07 Dose: 10 mg Admin: 08/08/19 09:18 Dose: 10 mg Admin: 08/07/19 08:42 Dose: 10 mg Citalopram Hydrobromide (Celexa) 10 mg PO DAILY [facility] Last Admin: 08/09/19 09:07 Dose: 10 mg Admin: 08/08/19 09:19 Dose: 10 mg Admin: 08/07/19 08:41 Dose: 10 mg Clopidogrel Bisulfate (Plavix) 75 mg PO DAILY [facility] Last Admin: 08/09/19 09:08 Dose: 75 mg Admin: 08/08/19 09:18 Dose: 75 mg Admin: 08/07/19 08:42 Dose: 75 mg Docusate Sodium (Colace) 100 mg PO BID [facility] Last Admin: 08/09/19 09:07 Dose: 100 mg Admin: 08/08/19 20:59 Dose: 100 mg Admin: 08/08/19 09:18 Dose: 100 mg Admin: 08/07/19 20:12 Dose: 100 mg Admin: 08/07/19 08:42 Dose: 100 mg Admin: 08/06/19 21:03 Dose: 100 mg Ketorolac Tromethamine (Toradol) 15 mg IVPUSH Q8H PRN PRN Reason: Pain Stop: 08/11/19 21:05 Last Admin: 08/06/19 21:57 Dose: 15 mg Ketotifen Fumarate (Ketotifen 0.025% Ophth Soln) 0 ml EYEBOTH DAILY PRN PRN Reason: Allergies Magnesium Hydroxide (Milk Of Magnesia) 30 ml PO BID PRN PRN Reason: Constipation Last Admin: 08/08/19 09:17 Dose: 30 ml Metoprolol Tartrate (Lopressor) 25 mg PO BID [facility] Last Admin: 08/09/19 09:07 Dose: 25 mg Admin: 08/08/19 20:59 Dose: 25 mg Admin: 08/08/19 09:18 Dose: 25 mg Admin: 08/07/19 20:12 Dose: 25 mg Admin: 08/07/19 08:42 Dose: 25 mg Admin: 08/06/19 21:03 Dose: 25 mg Ondansetron HCl (Zofran) 4 mg IVPUSH Q6H PRN PRN Reason: Nausea/Vomiting Oxycodone/Acetaminophen (Percocet 325-5 Mg) 2 tab PO Q4H PRN PRN Reason: Pain Last Admin: 08/09/19 10:20 Dose: 1 tab Admin: 08/08/19 23:40 Dose: 2 tab Admin: 08/08/19 19:37 Dose: 1 tab Admin: 08/08/19 07:45 Dose: 1 tab Admin: 08/08/19 02:58 Dose: 1 tab Admin: 08/07/19 18:23 Dose: 2 tab Admin: 08/07/19 12:56 Dose: 2 tab Admin: 08/07/19 06:26 Dose: 2 tab Admin: 08/07/19 02:23 Dose: 2 tab Admin: 08/06/19 21:56 Dose: 2 tab Admin: 08/06/19 17:45 Dose: 2 tab Admin: 08/06/19 14:17 Dose: 2 tab Pantoprazole Sodium (Protonix) 40 mg PO ACBREAKFAST [facility] Last Admin: 08/09/19 09:07 Dose: 40 mg Admin: 08/08/19 06:37 Dose: 40 mg Admin: 08/07/19 08:42 Dose: 40 mg Pravastatin Sodium (Pravachol) 10 mg PO DAILY [facility] Last Admin: 08/09/19 09:07 Dose: 10 mg Admin: 08/08/19 09:18 Dose: 10 mg Admin: 08/07/19 08:41 Dose: 10 mg Triamterene/HCTZ (Maxzide 25-37.5 Mg) 1 each PO DAILY [facility] Last Admin: 08/09/19 09:08 Dose: 1 each Admin: 08/08/19 09:19 Dose: 1 each Admin: 08/07/19 08:42 Dose: 1 each - Assessment Assessment (Free Text/Narrative):: Pain not well controlled, minimal participation with PT, H/H ok, no appetite - Plan Plan (Free Text/Narrative):: adjust meds, encourage PT/OT participation, change dressing tomorrow
--- NOTE | 2019-08-09 13:08 | PCM.SURGPN ---
- General Info Date of Service: 08/08/19 Date of Surgery/Procedure: 08/06/19 POD#: 2 Functional Status: Reports: Pain Controlled, Tolerating Diet - Review of Systems General: Reports: No Symptoms HEENT: Reports: No Symptoms Pulmonary: Reports: No Symptoms Cardiovascular: Reports: No Symptoms Gastrointestinal: Reports: No Symptoms Genitourinary: Reports: No Symptoms Musculoskeletal: Reports: Leg Pain, Joint Swelling Skin: Reports: No Symptoms Neurological: Reports: No Symptoms Psychiatric: Reports: No Symptoms - Patient Data Vitals - Most Recent: Last Vital Signs Temp 36.9 C 08/09/19 07:21 Pulse 116 H 08/09/19 09:07 Resp 16 08/09/19 07:21 BP 130/75 08/09/19 09:07 Pulse Ox 94 L 08/09/19 07:21 Weight - Most Recent: 75.296 kg I&O - Last 24 Hours: Intake & Output 08/08/19 08/09/19 08/09/19 22:59 06:59 14:59 Intake Total 420 400 Balance 420 400 Med Orders - Current: Current Medications Acetaminophen (Tylenol) 650 mg PO Q6H PRN PRN Reason: Pain Last Admin: 08/08/19 19:37 Dose: 325 mg Hydrocodone Bitart/Acetaminophen ([place] 325-5 Mg) 1 tab PO Q3H PRN PRN Reason: Pain Albuterol (Ventolin Hfa) 0 gm INH Q4H PRN PRN Reason: Dyspnea Artificial Tears (Genteal Mild To Moderate Ophth Soln) 0 ml EYEBOTH BID PRN PRN Reason: Other Bandage/Support Products ( Nasal Modeler) 1 applic NASBOTH BID [facility] Stop: 08/12/19 21:01 Last Admin: 08/09/19 09:08 Dose: 1 applic Calcium Carbonate/Glycine (Tums) 1,000 mg PO Q2H PRN PRN Reason: Indigestion Last Admin: 08/08/19 02:22 Dose: 1,000 mg Cetirizine HCl (Zyrtec) 10 mg PO DAILY [facility] Last Admin: 08/09/19 09:07 Dose: 10 mg Citalopram Hydrobromide (Celexa) 10 mg PO DAILY [facility] Last Admin: 08/09/19 09:07 Dose: 10 mg Clopidogrel Bisulfate (Plavix) 75 mg PO DAILY [facility] Last Admin: 08/09/19 09:08 Dose: 75 mg Docusate Sodium (Colace) 100 mg PO BID [facility] Last Admin: 08/09/19 09:07 Dose: 100 mg Ketorolac Tromethamine (Toradol) 15 mg IVPUSH Q8H PRN PRN Reason: Pain Stop: 08/11/19 21:05 Last Admin: 08/06/19 21:57 Dose: 15 mg Ketotifen Fumarate (Ketotifen 0.025% Ophth Soln) 0 ml EYEBOTH DAILY PRN PRN Reason: Allergies Magnesium Hydroxide (Milk Of Magnesia) 30 ml PO BID PRN PRN Reason: Constipation Last Admin: 08/08/19 09:17 Dose: 30 ml Metoprolol Tartrate (Lopressor) 25 mg PO BID [facility] Last Admin: 08/09/19 09:07 Dose: 25 mg Ondansetron HCl (Zofran) 4 mg IVPUSH Q6H PRN PRN Reason: Nausea/Vomiting Oxycodone/Acetaminophen (Percocet 325-5 Mg) 2 tab PO Q4H PRN PRN Reason: Pain Last Admin: 08/09/19 10:20 Dose: 1 tab Pantoprazole Sodium (Protonix) 40 mg PO ACBREAKFAST [facility] Last Admin: 08/09/19 09:07 Dose: 40 mg Pravastatin Sodium (Pravachol) 10 mg PO DAILY [facility] Last Admin: 08/09/19 09:07 Dose: 10 mg Triamterene/HCTZ (Maxzide 25-37.5 Mg) 1 each PO DAILY [facility] Last Admin: 08/09/19 09:08 Dose: 1 each Discontinued Medications Bupivacaine HCl (Sensorcaine-Mpf 0.25%) Confirm Administered Dose 10 ml .ROUTE .STK-MED ONE Stop: 08/06/19 10:47 Fentanyl (Sublimaze) Confirm Administered Dose 100 mcg .ROUTE .STK-MED ONE Stop: 08/06/19 08:24 Gabapentin (Neurontin) 300 mg PO ONETIME ONE Stop: 08/06/19 09:46 Last Admin: 08/06/19 09:45 Dose: 300 mg Cefazolin Sodium 2 gm/ Sodium (Chloride) 50 mls @ 100 mls/hr IV ONETIME ONE Stop: 08/06/19 11:29 Last Admin: 08/06/19 11:05 Dose: 100 mls/hr Lactated Ringer's (Ringers, Lactated) 1,000 mls @ 75 mls/hr IV ASDIRECTED [facility] Last Admin: 08/06/19 16:54 Dose: 75 mls/hr Tranexamic Acid 780 mg/ Sodium (Chloride) 57.8 mls @ 231.2 mls/hr IV ONETIME ONE Stop: 08/06/19 11:14 Last Admin: 08/06/19 11:15 Dose: 231.2 mls/hr Tranexamic Acid 780 mg/ Sodium (Chloride) 57.8 mls @ 231.2 mls/hr IV ONETIME PRN PRN Reason: IF ORDERED BY SURGEON Stop: 08/06/19 18:00 Lactated Ringer's (Ringers, Lactated) Confirm Administered Dose 1,000 mls @ as directed .ROUTE .STK-MED ONE Stop: 08/06/19 11:53 Cefazolin Sodium/Dextrose 1 gm (/ Premix) 50 mls @ 100 mls/hr IV Q8H [facility] Stop: 08/07/19 10:29 Last Admin: 08/07/19 09:56 Dose: 100 mls/hr Sodium Chloride (Normal Saline) 1,000 mls @ 125 mls/hr IV ASDIRECTED [facility] Last Admin: 08/08/19 10:22 Dose: 125 mls/hr Ketorolac Tromethamine (Toradol) 30 mg IVPUSH Q8H PRN PRN Reason: Pain Stop: 08/11/19 19:15 Midazolam HCl (Versed 1 Mg/Ml) Confirm Administered Dose 2 mg .ROUTE .STK-MED ONE Stop: 08/06/19 08:24 Morphine Sulfate (Morphine) 2 mg IVPUSH Q1H PRN PRN Reason: Breakthrough Pain Povidone Iodine (Betadine 10% Soln) Confirm Administered Dose 1 ml .ROUTE .STK- MED ONE Stop: 08/06/19 06:44 Last Admin: 08/06/19 11:55 Dose: 1 ml Propofol (Diprivan 20 Ml) Confirm Administered Dose 200 mg .ROUTE .STK-MED ONE Stop: 08/06/19 08:24 - Exam Wound/Incisions: Healing Well, No Drainage General: Alert, Oriented HEENT: Pupils Equal Neck: Supple Lungs: Clear to Auscultation, Normal Respiratory Effort Cardiovascular: Regular Rate, Regular Rhythm GI/Abdominal Exam: Normal Bowel Sounds, Soft, Non-Tender, No Distention Extremities: Joint Swelling, Limited Range of Motion Skin: Warm, Dry Neurological: No New Focal Deficit Psy/Mental Status: Alert, Normal Affect, Normal Mood - Problem List & Annotations (1) S/P total knee arthroplasty SNOMED Code(s): 3881633182562, [id number], [id number] Code(s): Z96.659 - PRESENCE OF UNSPECIFIED ARTIFICIAL KNEE JOINT Status: Acute Current Visit: Yes Qualifiers: Laterality: right Qualified Code(s): Z96.651 - Presence of right artificial knee joint (2) Osteoarthritis of right knee SNOMED Code(s): 638581475791322 Code(s): M17.11 - UNILATERAL PRIMARY OSTEOARTHRITIS, RIGHT KNEE Status: Acute Current Visit: No Qualifiers: Osteoarthritis type: primary - Problem List Review Problem List Initiated/Reviewed/Updated: Yes - My Orders Last 24 Hours: Active Orders 24 hr Category Date Time Status Ready for Discharge [RC] PER UNIT ROUTINE Care 08/09/19 09:23 Active Medication Orders Acetaminophen (Tylenol) 650 mg PO Q6H PRN PRN Reason: Pain Last Admin: 08/08/19 19:37 Dose: 325 mg Admin: 08/08/19 02:58 Dose: 325 mg Hydrocodone Bitart/Acetaminophen ([place] 325-5 Mg) 1 tab PO Q3H PRN PRN Reason: Pain Albuterol (Ventolin Hfa) 0 gm INH Q4H PRN PRN Reason: Dyspnea Artificial Tears (Genteal Mild To Moderate Ophth Soln) 0 ml EYEBOTH BID PRN PRN Reason: Other Bandage/Support Products ( Nasal Modeler) 1 applic NASBOTH BID [facility] Stop: 08/12/19 21:01 Last Admin: 08/09/19 09:08 Dose: 1 applic Admin: 08/08/19 20:58 Dose: 1 applic Admin: 08/08/19 09:19 Dose: 1 applic Admin: 08/07/19 20:13 Dose: 1 applic Admin: 08/07/19 08:43 Dose: 1 applic Admin: 08/06/19 21:02 Dose: 1 applic Admin: 08/06/19 09:48 Dose: 1 applic Calcium Carbonate/Glycine (Tums) 1,000 mg PO Q2H PRN PRN Reason: Indigestion Last Admin: 08/08/19 02:22 Dose: 1,000 mg Cetirizine HCl (Zyrtec) 10 mg PO DAILY [facility] Last Admin: 08/09/19 09:07 Dose: 10 mg Admin: 08/08/19 09:18 Dose: 10 mg Admin: 08/07/19 08:42 Dose: 10 mg Citalopram Hydrobromide (Celexa) 10 mg PO DAILY [facility] Last Admin: 08/09/19 09:07 Dose: 10 mg Admin: 08/08/19 09:19 Dose: 10 mg Admin: 08/07/19 08:41 Dose: 10 mg Clopidogrel Bisulfate (Plavix) 75 mg PO DAILY [facility] Last Admin: 08/09/19 09:08 Dose: 75 mg Admin: 08/08/19 09:18 Dose: 75 mg Admin: 08/07/19 08:42 Dose: 75 mg Docusate Sodium (Colace) 100 mg PO BID [facility] Last Admin: 08/09/19 09:07 Dose: 100 mg Admin: 08/08/19 20:59 Dose: 100 mg Admin: 08/08/19 09:18 Dose: 100 mg Admin: 08/07/19 20:12 Dose: 100 mg Admin: 08/07/19 08:42 Dose: 100 mg Admin: 08/06/19 21:03 Dose: 100 mg Ketorolac Tromethamine (Toradol) 15 mg IVPUSH Q8H PRN PRN Reason: Pain Stop: 08/11/19 21:05 Last Admin: 08/06/19 21:57 Dose: 15 mg Ketotifen Fumarate (Ketotifen 0.025% Ophth Soln) 0 ml EYEBOTH DAILY PRN PRN Reason: Allergies Magnesium Hydroxide (Milk Of Magnesia) 30 ml PO BID PRN PRN Reason: Constipation Last Admin: 08/08/19 09:17 Dose: 30 ml Metoprolol Tartrate (Lopressor) 25 mg PO BID [facility] Last Admin: 08/09/19 09:07 Dose: 25 mg Admin: 08/08/19 20:59 Dose: 25 mg Admin: 08/08/19 09:18 Dose: 25 mg Admin: 08/07/19 20:12 Dose: 25 mg Admin: 08/07/19 08:42 Dose: 25 mg Admin: 08/06/19 21:03 Dose: 25 mg Ondansetron HCl (Zofran) 4 mg IVPUSH Q6H PRN PRN Reason: Nausea/Vomiting Oxycodone/Acetaminophen (Percocet 325-5 Mg) 2 tab PO Q4H PRN PRN Reason: Pain Last Admin: 08/09/19 10:20 Dose: 1 tab Admin: 08/08/19 23:40 Dose: 2 tab Admin: 08/08/19 19:37 Dose: 1 tab Admin: 08/08/19 07:45 Dose: 1 tab Admin: 08/08/19 02:58 Dose: 1 tab Admin: 08/07/19 18:23 Dose: 2 tab Admin: 08/07/19 12:56 Dose: 2 tab Admin: 08/07/19 06:26 Dose: 2 tab Admin: 08/07/19 02:23 Dose: 2 tab Admin: 08/06/19 21:56 Dose: 2 tab Admin: 08/06/19 17:45 Dose: 2 tab Admin: 08/06/19 14:17 Dose: 2 tab Pantoprazole Sodium (Protonix) 40 mg PO ACBREAKFAST [facility] Last Admin: 08/09/19 09:07 Dose: 40 mg Admin: 08/08/19 06:37 Dose: 40 mg Admin: 08/07/19 08:42 Dose: 40 mg Pravastatin Sodium (Pravachol) 10 mg PO DAILY [facility] Last Admin: 08/09/19 09:07 Dose: 10 mg Admin: 08/08/19 09:18 Dose: 10 mg Admin: 08/07/19 08:41 Dose: 10 mg Triamterene/HCTZ (Maxzide 25-37.5 Mg) 1 each PO DAILY [facility] Last Admin: 08/09/19 09:08 Dose: 1 each Admin: 08/08/19 09:19 Dose: 1 each Admin: 08/07/19 08:42 Dose: 1 each - Assessment Assessment (Free Text/Narrative):: better today tolerating chair, few steps in room, dressing removed-no drainage, approx 85 degrees flexion - Plan Plan (Free Text/Narrative):: Person out today, continue PT/OT, will likely need some rehab, start process for referral.
--- NOTE | 2019-08-10 14:55 | OR ---
DATE OF PROCEDURE: 08/06/2019 SURGEON: Andi Rosenbaum MD PREOPERATIVE DIAGNOSIS: Osteoarthritis, right knee, end-stage. POSTOPERATIVE DIAGNOSIS: Osteoarthritis, right knee, end-stage. PROCEDURE: Right total knee arthroplasty using [employer] components with a size 5 femur, D tibia, 32 mm patella, and 10 mm polyethylene insert. ANESTHESIA: Spinal with sedation. INDICATIONS: Isabell is a 79-year-old female with a history of progressive pain and valgus deformity of the right knee for the past couple of years. It is now interfering with activities of daily living. She has failed conservative treatment. X-rays reveal end-stage osteoarthritis and mild valgus deformity. She now presents for total knee arthroplasty. Risks, benefits, potential complications of the procedure were discussed. DESCRIPTION OF PROCEDURE: After adequate anesthesia was obtained, the patient was placed supine with a tourniquet about the right upper thigh. Right leg was prepped and draped in a sterile fashion. Leg was exsanguinated and tourniquet inflated to 300 mmHg. A longitudinal incision was made over the anterior aspect of the knee and carried down through the subcutaneous tissues. A medial parapatellar arthrotomy was performed. A moderate effusion was present. Significant degenerative change was noted throughout the knee. Edges of the patella were exposed and the posterior aspect of the patella was resected with an oscillating saw. Knee was flexed, and the intramedullary canal was drilled. Intramedullary alignment jig was placed. Distal femoral cutting guide was secured in place. Intramedullary guide was removed. The distal cutting jig was adjusted for an additional 2 mm to compensate for the loss of bone in the lateral femoral condyle. Distal cut was then made. Attention was turned to the tibia. Extramedullary tibial alignment jig was utilized. This was secured to the proximal tibia and the proximal tibia was resected with an oscillating saw. Knee was extended and remaining medial and lateral meniscus were excised. Knee was flexed, and the femur was sized to a #5 component. Distal cutting jig was secured to the femur and remaining anterior, posterior, and chamfer cuts were made. Femoral trial was placed and the intercondylar notch was then cut for a posterior cruciate sacrificing component. The tibia was then sized to a D component. Base plate was secured with pins and tibial preparation was completed with the reamer and punch. A trial reduction was then done with a 10 mm insert providing excellent balance in flexion and extension with full extension. Patella was sized to a 32 mm component. Patella was drilled and trial was placed, and the knee was taken through range of motion. This showed some lateral tracking and a lateral release was performed. This significantly improved tracking of the patella. Trial components were removed. The knee was thoroughly irrigated with pulse lavage. Bone surfaces were dried and components were cemented in place. Excess cement was removed. The knee was then held in full extension with a 10 mm trial insert as cement cured. Balance in flexion extension was tested. Trial was removed and the 10 mm polyethylene was then snapped into position. Knee was again taken through range of motion, found to be very stable in both flexion extension with good balance. Full extension was obtained and flexion to 125 degrees. Knee was thoroughly irrigated with the pulse lavage. This was followed by irrigation with a dilute Betadine solution, which was left in place for a 2-1/2 minutes. This was irrigated with pulse lavage and the knee was then closed using Ethibond in the capsular incision in interrupted fashion. Skin was closed with 2-0 Vicryl and a running 3-0 Monocryl. Steri-Strips were applied. Light compressive dressing was then placed. The patient tolerated the procedure well. There were no complications. She was taken from the operating room in stable condition. Andi Rosenbaum MD /[id number]
== END 2019-08-09 12:15 | DRG 470 ==
LOC: EDSTATUS 07:30 → JP.SDSSCHI 09:25 → JP.SDS 09:25 → JP.MS 13:07
PROVIDERS: ADMIT Specialist; ATTEND Specialist
PROC: 0SRC0J9 Replacement of Right Knee Joint with Synthetic Substitute, Cemented, Open Approach (ICD-10-PCS; principal; 2019-08-06)
DX: M17.11 Unilateral primary osteoarthritis, right knee (principal); N39.0 Urinary tract infection, site not specified; G89.29 Other chronic pain; M54.9 Dorsalgia, unspecified; I10 Essential (primary) hypertension; F32.9 Major depressive disorder, single episode, unspecified; K21.9 Gastro-esophageal reflux disease without esophagitis; E78.5 Hyperlipidemia, unspecified; G47.33 Obstructive sleep apnea (adult) (pediatric); Z99.81 Dependence on supplemental oxygen; Z86.73 Personal history of transient ischemic attack (TIA), and cerebral infarction without residual deficits; Z88.5 Allergy status to narcotic agent; Z79.899 Other long term (current) drug therapy; Z88.8 Allergy status to other drugs, medicaments and biological substances
CPT/HCPCS: 36415; 73560-26-RT; 73560-RT; 85027; 86850; 86900; 86901; 97110-GP; 97116-GP; 97162-GP; 97165-GO; 97530-GP; 97535-GP; A9270-GY; C1713; C1776; J0690; J1885; J2250; J2704; J3010; J3490; J7030; J7050; J7120

== ENCOUNTER 2022-08-19 07:49 | Emergency (ER) | payer MEDICARE, BC ==
[2022-08-19] MEDS ORDERED: methylPREDNISolone Sodium Succinate 125 MG/2 ML SDV IVPUSH ONE (09:01)
[2022-08-19] MEDS ORDERED: Ketorolac 30 MG/ML SDV IVPUSH ONE (09:01)
[2022-08-19] MEDS ORDERED: fentaNYL 50 MCG/ML SDV IVPUSH ONE (09:40)
[2022-08-19 09:47] VITALS: BP 147/81; PULSE 64
== END 2022-08-19 11:16 | disposition home or self-care (01) ==
LOC: JP.ED 07:49
DX: M47.816 Spondylosis without myelopathy or radiculopathy, lumbar region (principal); J44.9 Chronic obstructive pulmonary disease, unspecified; I10 Essential (primary) hypertension; E78.00 Pure hypercholesterolemia, unspecified; Z88.6 Allergy status to analgesic agent; Z88.8 Allergy status to other drugs, medicaments and biological substances; Z79.899 Other long term (current) drug therapy; Z90.710 Acquired absence of both cervix and uterus
CPT/HCPCS: 72131; 96374; 96375; 99284; J1885; J2930; J3010

== ENCOUNTER 2022-10-13 08:16 | Day surgery (SDC) | payer MEDICARE, BC ==
[2022-10-13] MEDS ORDERED: fentaNYL 250 MCG/5 ML SDV ONE (08:54)
[2022-10-13] MEDS ORDERED: Ondansetron 4 MG/2 ML SDV ONE (08:55)
[2022-10-13] MEDS ORDERED: Succinylcholine 200 MG/10 ML MDV ONE (08:55)
[2022-10-13] MEDS ORDERED: Propofol 200 MG/20 ML SDV ONE (08:55)
[2022-10-13] MEDS ORDERED: Neostigmine Methylsulfate 1 MG/ML 5 ML Syringe ONE (08:55)
[2022-10-13] MEDS ORDERED: Dexamethasone 4 MG/ML SDV ONE (08:55)
[2022-10-13] MEDS ORDERED: Rocuronium 50 MG/5 ML Vial ONE (08:55)
[2022-10-13] MEDS ORDERED: Glycopyrrolate 0.2 MG/ML 5 ML MDV ONE (08:55)
[2022-10-13] MEDS ORDERED: ceFAZolin 2 GM in Premix Bag 1 BAG IV ONE (09:00)
[2022-10-13] MEDS ORDERED: Nozin Nasal Sanitizer NASBOTH ONE (09:00)
[2022-10-13] MEDS ORDERED: Lactated Ringers 1,000 ML IV SCH (09:00)
[2022-10-13] MEDS ORDERED: Bupivacaine 0.5% 30 ML SDV ONE (09:49)
[2022-10-13] MEDS ORDERED: Acetaminophen/HYDROcodone 325-5 MG Tab PO ONE (15:30)
[2022-10-13] MEDS ORDERED: Ondansetron 4 MG Tab.DIS PO ONE (15:45)
[2022-10-13 16:00] VITALS: BP 151/71; PULSE 64
== END 2022-10-13 17:49 | disposition home or self-care (01) ==
LOC: JP.SDS 08:16
PROVIDERS: ATTEND Specialist
DX: M25.372 Other instability, left ankle (principal); F32.9 Major depressive disorder, single episode, unspecified; E78.5 Hyperlipidemia, unspecified; G47.33 Obstructive sleep apnea (adult) (pediatric); G31.84 Mild cognitive impairment of uncertain or unknown etiology; M48.062 Spinal stenosis, lumbar region with neurogenic claudication; I10 Essential (primary) hypertension; K21.9 Gastro-esophageal reflux disease without esophagitis; Z79.899 Other long term (current) drug therapy; Z88.4 Allergy status to anesthetic agent; Z88.6 Allergy status to analgesic agent
CPT/HCPCS: 27698; A9270; J0690; J1100; J2405; J2704; J2710; J3010; J3490; J7120; Q0162; J0330

== ENCOUNTER 2022-11-16 17:59 | Observation (INO) | payer MEDICARE, BC ==
[2022-11-16] MEDS ORDERED: Sodium Chloride 0.9% 500 ML IV ONE (18:07)
[2022-11-16] MEDS ORDERED: Sodium Chloride 0.9% 10 ML Syringe FLUSH PRN (18:07)
[2022-11-16 18:45] LABS: TROPONIN I HIGH SENSITIVITY 8.3 pg/mL (<=60.3)
[2022-11-16] MEDS ORDERED: Sodium Chloride 0.9% 75 ML IV SCH (19:00)
[2022-11-16] MEDS ORDERED: Iopamidol 755 Mg/ML 100 ML Bottle IV SCH (19:00)
[2022-11-16] MEDS ORDERED: Pravastatin 20 MG Tab PO SCH (21:00)
[2022-11-16 21:34] LABS: CORONAVIRUS COVID-19 NAA NEGATIVE (NEGATIVE)
[2022-11-16] MEDS ORDERED: Acetaminophen 325 MG Tab PO PRN (21:45)
[2022-11-16] MEDS ORDERED: LORazepam 2 MG/ML SDV IV PRN (21:45)
[2022-11-16] MEDS ORDERED: Sodium Chloride 0.9% 1,000 ML IV SCH (21:45)
[2022-11-16] MEDS ORDERED: Ondansetron 4 MG Tab.DIS PO PRN (21:45)
[2022-11-16] MEDS ORDERED: Ondansetron 4 MG/2 ML SDV IV PRN (21:45)
[2022-11-16] MEDS ORDERED: Bisacodyl 5 MG Tab PO PRN (21:45)
[2022-11-16] MEDS ORDERED: Ketotifen 0.025% Ophth Soln 5 ML Bottle EYEBOTH PRN (22:01)
[2022-11-16] MEDS ORDERED: Albuterol 0.083% 2.5 MG/3 ML Neb Soln INH PRN (22:01)
[2022-11-16] MEDS ORDERED: Simethicone 125 MG Tab.Chew PO PRN (22:01)
[2022-11-16] MEDS ORDERED: Calcium Carbonate 500 MG Tab.Chew PO PRN (22:08)
[2022-11-16] MEDS ORDERED: Metoprolol Tartrate 50 MG Tab PO SCH (22:15)
[2022-11-16] MEDS ORDERED: Acetaminophen 325 MG Tab, 50 Tab Bulk Bottle PO SCH (22:15)
[2022-11-16] MEDS: Aspirin 81 MG Tab.Chew PO SCH (23:14)
[2022-11-16] MEDS: Ticagrelor 90 MG Tab PO SCH (23:14)
[2022-11-17] MEDS ORDERED: Hypromellose 0.3% Ophth Soln 15 ML Bottle EYEBOTH PRN (07:20)
[2022-11-17] MEDS ORDERED: Pantoprazole 40 MG Tab.CR PO SCH ×2 (08:15→09:00)
[2022-11-17] MEDS: Aspirin 81 MG Tab.Chew PO SCH (08:29)
[2022-11-17] MEDS: Ticagrelor 90 MG Tab PO SCH (08:29)
[2022-11-17] MEDS ORDERED: Docusate Sodium 100 MG Cap PO SCH (09:00)
[2022-11-17] MEDS ORDERED: Hydrochlorothiazide/Triamterene 25-37.5 Tab PO SCH (09:00)
[2022-11-17] MEDS ORDERED: Citalopram 10 MG Tab PO SCH (09:00)
[2022-11-17] MEDS ORDERED: Metoprolol Tartrate 25 MG Tab PO SCH (09:00)
[2022-11-17] MEDS ORDERED: Gadoteridol 279.3 MG/ML 20 ML SDV IV SCH (11:00)
[2022-11-17 12:19] VITALS: BP 148/88; PULSE 61
[2022-11-17] MEDS ORDERED: Betamethasone Dipropionate 0.05% Crm 15 GM Tube TOP SCH (21:00)
[2022-11-17] MEDS ORDERED: Melatonin 3 MG Tab PO SCH (21:00)
== END 2022-11-17 15:00 | disposition home or self-care (01) ==
LOC: JP.ED 17:59 → JP.2SS 20:48
PROVIDERS: ADMIT Hospitalist; ATTEND Hospitalist
DX: F43.21 Adjustment disorder with depressed mood (principal); I65.23 Occlusion and stenosis of bilateral carotid arteries; I67.82 Cerebral ischemia; I10 Essential (primary) hypertension; E78.00 Pure hypercholesterolemia, unspecified; M19.90 Unspecified osteoarthritis, unspecified site; G47.30 Sleep apnea, unspecified; J43.9 Emphysema, unspecified; F32.A Depression, unspecified; Z79.899 Other long term (current) drug therapy; Z20.822 Contact with and (suspected) exposure to COVID-19; Z88.6 Allergy status to analgesic agent; Z88.8 Allergy status to other drugs, medicaments and biological substances; Z98.890 Other specified postprocedural states; Z98.1 Arthrodesis status
CPT/HCPCS: 0241U; 36415; 70450; 70496; 70498; 70553; 70553-26; 80048; 81001; 82150; 82947; 83690; 84484; 85025; 85610; 85730; 93005; 93880; 93880-26; 99222; 99238; 99291; A9270-GY; A9579; G0378; J3490; J7040; Q9967

== ENCOUNTER 2024-08-15 06:04 | Day surgery (SDC) | payer MEDICARE, BC ==
[2024-08-15] MEDS: Lactated Ringers 1,000 ML IV SCH (07:16)
[2024-08-15] MEDS ORDERED: ceFAZolin 2 GM in Sodium Chloride 0.9% 50 ML IV ONE (07:30)
[2024-08-15] MEDS ORDERED: fentaNYL 100 MCG/2 ML SDV ONE (07:52)
[2024-08-15] MEDS ORDERED: Propofol 200 MG/20 ML SDV ONE (07:52)
[2024-08-15] MEDS: ceFAZolin 2 GM in Premix Bag 1 BAG IV ONE (07:55)
[2024-08-15] MEDS: Lidocaine 1% with EPINEPHrine 1:100,000 50 ML MDV ONE (08:20)
[2024-08-15] MEDS: Bupivacaine 0.5% 50 ML MDV ONE (08:20)
[2024-08-15 13:03] VITALS: BP 164/84; PULSE 59
== END 2024-08-15 14:24 | disposition home or self-care (01) ==
LOC: JP.SDS 06:04
PROVIDERS: ATTEND Surgery
DX: D24.2 Benign neoplasm of left breast (principal); N60.82 Other benign mammary dysplasias of left breast; I25.10 Atherosclerotic heart disease of native coronary artery without angina pectoris; I10 Essential (primary) hypertension; Z88.8 Allergy status to other drugs, medicaments and biological substances; Z88.5 Allergy status to narcotic agent; Z79.899 Other long term (current) drug therapy
CPT/HCPCS: 00400 ×2; 19125; 36415; 76098 ×2; 86850; 86900; 86901; 88307; 88341; 88342; 88360; J0665; J0690; J2704; J3010; J7120